=== PATIENT | male | born 1980 | race African-American/Black ===

== ENCOUNTER 2018-09-22 08:01 | Inpatient (IN) | payer MEDICAID ==
[~2018-09-22] VITALS: Ht 180.3 cm; Wt 72.1 kg
[~2018-09-22 08:01] MED LIST: ARIP5TAB8 PO
[2018-09-22] MEDS ORDERED: ESCI20TA PO (08:32)
[2018-09-22] MEDS ORDERED: OLAN7.5T2 PO (08:32)
[2018-09-22 10:29] LABS: BASOPHILS % (AUTO) 0.5 % (0.0-2.0); EOSINOPHILS % (AUTO) 2.4 % (1.0-6.0); HEMATOCRIT 32.9 % (41-53); HEMOGLOBIN 10.3 g/dL (13.5-17.5); LYMPHOCYTES # (AUTO) 1.7 K/uL (1.0-4.8); LYMPHOCYTES % (AUTO) 25.6 % (22.0-44.0); MEAN CORPUSCULAR HEMOGLOBIN 23.3 pg (26.0-34.0); MEAN CORPUSCULAR HGB CONC 31.4 G/dL (31.0-37.0); MEAN CORPUSCULAR VOLUME 74 fL (80-100); MONOCYTES # (AUTO) 1.1 K/uL (0.1-1.0); MONOCYTES % (AUTO) 16.7 % (2.0-9.0); NEUTROPHILS # (AUTO) 3.6 K/uL (1.8-7.7); NEUTROPHILS % (AUTO) 54.8 % (40.0-70.0); PLATELET COUNT (AUTO) 230 K/uL (150-450); RED BLOOD CELL COUNT(AUTO) 4.44 MIL/uL (4.50-5.90); RED CELL DISTRIBUTION WIDTH 15.8 % (11.5-14.5)
[2018-09-22 10:37] LABS: ANION GAP 6 mmol/L (8-16); CALCIUM, TOTAL 8.9 mg/dL (8.8-10.5); CARBON DIOXIDE 29 mmol/L (22-29); CHLORIDE 102 mmol/L (98-107); CREATININE 0.77 mg/dL (0.60-1.30); GLOMERULAR FILTR. RATE CALC > 60 mL/min (>60); GLUCOSE,RANDOM 83 mg/dL (70-110); SODIUM SERUM 137 mmol/L (136-145); UREA NITROGEN, BLOOD 9 mg/dL (7-18)
[2018-09-22 10:44] LABS: ALANINE AMINOTRANSFERASE 23 U/L (12-78); ALBUMIN 3.3 g/dL (3.4-5.0); ALKALINE PHOSPHATASE 95 U/L (46-116); ASPARTATE AMINOTRANSFERASE 17 U/L (15-37); BILIRUBIN,TOTAL 0.4 mg/dL (0.1-1.0)
[2018-09-22] MEDS ORDERED: LOPERAMIDE HCL 2 MG CAPSULE PO PRN (15:15)
[2018-09-22] MEDS ORDERED: TUBERCULIN, PURIFIED PROTEIN DERIVATIVE 5 TU/0.1 ML SYRINGE ID ONE (15:15)
[2018-09-22] MEDS ORDERED: OLANZapine 5 MG RAPDIS TABLET PO PRN (15:15)
[2018-09-22] MEDS ORDERED: ZOLPIDEM TARTRATE 10 MG TABLET PO PRN (15:15)
[2018-09-22] MEDS ORDERED: PROMETHAZINE HCL 25 MG TABLET PO PRN (15:15)
[2018-09-22] MEDS ORDERED: MAG HYDROX/AL HYDROX/SIMETH ES 30 ML SUSPENSION UDCUP PO PRN (15:15)
[2018-09-22] MEDS ORDERED: MAGNESIUM HYDROXIDE SUSPENSION 30 ML UDCUP PO PRN (15:15)
[2018-09-22] MEDS ORDERED: HydrOXYzine PAMOATE 50 MG CAPSULE PO PRN (15:15)
[2018-09-22] MEDS ORDERED: GuaiFENesin/D-METHORPHAN [SUGAR-FREE] 200-20MG/10 ML SYRUP UDCUP PO PRN (15:15)
[2018-09-22] MEDS ORDERED: LORazepam 2 MG TABLET PO PRN (15:15)
[2018-09-22 19:41] VITALS: BP 119/72
[2018-09-22] MEDS: OLANZapine 5 MG RAPDIS TABLET PO SCH (21:16)
[2018-09-22] MEDS: THIAMINE HCL 100 MG TABLET PO SCH (21:16)
[2018-09-23 08:23] VITALS: BP_SYST 109; BP_SYST 140; BP_DIAS 63; BP_DIAS 76
[2018-09-23 08:32] LABS: CHOL/HDL RATIO 1.9 (4.2-7.3); FREE T4 (FREE THYROXINE) 0.98 ng/dL (0.76-1.46); THYROID STIMULATING HORMONE 0.97 uIU/mL (0.36-3.74)
[2018-09-23] MEDS: FLUoxetine HCL 20 MG CAPSULE PO SCH (09:10)
[2018-09-23] MEDS: MULTIVITAMINS WITH MINERALS, THERAPEUTIC TABLET PO SCH (09:10)
[2018-09-23] MEDS: THIAMINE HCL 100 MG TABLET PO SCH ×2 (09:10→16:16)
[2018-09-23] MEDS: FOLIC ACID 1 MG TABLET PO SCH (09:11)
[2018-09-23] MEDS: NALTREXONE HCL 50 MG TABLET PO SCH (09:11)
[2018-09-23 16:16] VITALS: BP 105/62
[2018-09-23] MEDS: OLANZapine 5 MG RAPDIS TABLET PO SCH (20:34)
[2018-09-24 06:23] VITALS: BP 110/68
[2018-09-24 08:23] VITALS: BP 118/67
[2018-09-24] MEDS: NALTREXONE HCL 50 MG TABLET PO SCH (09:07)
[2018-09-24] MEDS: FOLIC ACID 1 MG TABLET PO SCH (09:07)
[2018-09-24] MEDS: THIAMINE HCL 100 MG TABLET PO SCH ×2 (09:07→16:34)
[2018-09-24] MEDS: MULTIVITAMINS WITH MINERALS, THERAPEUTIC TABLET PO SCH (09:07)
[2018-09-24] MEDS: FLUoxetine HCL 20 MG CAPSULE PO SCH (09:07)
[2018-09-24] MEDS: ACETAMINOPHEN 325 MG TABLET PO PRN (09:07)
[2018-09-24 16:24] VITALS: BP 111/78
[2018-09-24] MEDS: OLANZapine 10 MG RAPDIS TABLET PO SCH (20:37)
[2018-09-25 07:03] VITALS: BP 106/72
[2018-09-25] MEDS: FLUoxetine HCL 20 MG CAPSULE PO SCH (08:41)
[2018-09-25] MEDS: MULTIVITAMINS WITH MINERALS, THERAPEUTIC TABLET PO SCH (08:41)
[2018-09-25] MEDS: THIAMINE HCL 100 MG TABLET PO SCH ×2 (08:41→16:45)
[2018-09-25] MEDS: NALTREXONE HCL 50 MG TABLET PO SCH (08:41)
[2018-09-25] MEDS: FOLIC ACID 1 MG TABLET PO SCH (08:41)
[2018-09-25 09:03] VITALS: BP 115/66
[2018-09-25] MEDS: ACETAMINOPHEN 325 MG TABLET PO PRN (09:23)
[2018-09-25 16:24] VITALS: BP 109/60
[2018-09-25] MEDS: OLANZapine 10 MG RAPDIS TABLET PO SCH (20:35)
[2018-09-26 01:42] VITALS: BP 112/66
[2018-09-26 08:10] VITALS: BP 120/71
[2018-09-26] MEDS: NALTREXONE HCL 50 MG TABLET PO SCH (08:51)
[2018-09-26] MEDS: MULTIVITAMINS WITH MINERALS, THERAPEUTIC TABLET PO SCH (08:52)
[2018-09-26] MEDS: THIAMINE HCL 100 MG TABLET PO SCH ×2 (08:52→16:20)
[2018-09-26] MEDS: FLUoxetine HCL 20 MG CAPSULE PO SCH (08:52)
[2018-09-26] MEDS: FOLIC ACID 1 MG TABLET PO SCH (08:52)
[2018-09-26 16:12] VITALS: BP 106/68
[2018-09-26] MEDS: OLANZapine 10 MG RAPDIS TABLET PO SCH (20:49)
[2018-09-27 06:02] VITALS: BP 121/73
[2018-09-27 08:22] VITALS: BP 114/70
[2018-09-27] MEDS: FLUoxetine HCL 20 MG CAPSULE PO SCH (08:51)
[2018-09-27] MEDS: MULTIVITAMINS WITH MINERALS, THERAPEUTIC TABLET PO SCH (08:51)
[2018-09-27] MEDS: THIAMINE HCL 100 MG TABLET PO SCH ×2 (08:51→17:03)
[2018-09-27] MEDS: NALTREXONE HCL 50 MG TABLET PO SCH (08:51)
[2018-09-27] MEDS: FOLIC ACID 1 MG TABLET PO SCH (08:51)
[2018-09-27 16:18] VITALS: BP_SYST 116; BP_SYST 120; BP_DIAS 74
[2018-09-27] MEDS: OLANZapine 10 MG RAPDIS TABLET PO SCH (20:08)
[2018-09-28 05:59] VITALS: BP 119/74
[2018-09-28 08:16] VITALS: BP 112/56
[2018-09-28] MEDS: FOLIC ACID 1 MG TABLET PO SCH (09:04)
[2018-09-28] MEDS: MULTIVITAMINS WITH MINERALS, THERAPEUTIC TABLET PO SCH (09:04)
[2018-09-28] MEDS: NALTREXONE HCL 50 MG TABLET PO SCH (09:04)
[2018-09-28] MEDS: FLUoxetine HCL 20 MG CAPSULE PO SCH (09:04)
[2018-09-28] MEDS: THIAMINE HCL 100 MG TABLET PO SCH ×2 (09:04→16:48)
[2018-09-28 16:12] VITALS: BP 105/67
[2018-09-28] MEDS: OLANZapine 10 MG RAPDIS TABLET PO SCH (20:13)
[2018-09-29 05:58] VITALS: BP 110/68
[2018-09-29 08:18] VITALS: BP 104/62
[2018-09-29] MEDS: THIAMINE HCL 100 MG TABLET PO SCH (10:00)
[2018-09-29] MEDS: FOLIC ACID 1 MG TABLET PO SCH (10:00)
[2018-09-29] MEDS: MULTIVITAMINS WITH MINERALS, THERAPEUTIC TABLET PO SCH (10:00)
[2018-09-29] MEDS: NALTREXONE HCL 50 MG TABLET PO SCH (10:00)
[2018-09-29] MEDS: FLUoxetine HCL 20 MG CAPSULE PO SCH (10:00)
[2018-09-29] MEDS ORDERED: NALT50TA6 PO (10:59)
[2018-09-29] MEDS ORDERED: FLUO-191 PO (10:59)
[2018-09-29] MEDS ORDERED: OLAN10TA6 PO (10:59)
== END 2018-09-29 12:25 | disposition home or self-care (01) | DRG 750 ==
LOC: EMS 08:04 → B3A 17:50 → B2X 19:54
PROVIDERS: ADMIT Psychiatry & Neurology Psychiatry; ATTEND Psychiatry & Neurology Psychiatry
DX: F25.0 Schizoaffective disorder, bipolar type (principal); R45.851 Suicidal ideations; R45.850 Homicidal ideations; J45.909 Unspecified asthma, uncomplicated; F15.90 Other stimulant use, unspecified, uncomplicated; F19.10 Other psychoactive substance abuse, uncomplicated; F17.210 Nicotine dependence, cigarettes, uncomplicated; F60.0 Paranoid personality disorder; G89.29 Other chronic pain; Z65.3 Problems related to other legal circumstances; Z59.0 Homelessness; Z91.14 Patient's other noncompliance with medication regimen; Z91.5 Personal history of self-harm
CPT/HCPCS: 84439; 84443; 86592; G0480

== ENCOUNTER 2018-10-26 19:47 | Inpatient (IN) | payer MEDICAID ==
[~2018-10-26] VITALS: Ht 180.3 cm; Wt 70.8 kg
[~2018-10-26 19:47] MED LIST changes: +ALBU8HFA IH; -ARIP5TAB8 PO; +FLUO-191 PO; +NALT50TA PO; +OLAN10TA22 PO
[2018-10-26 20:34] LABS: BASOPHILS % (AUTO) 0.8 % (0.0-2.0); EOSINOPHILS % (AUTO) 6.4 % (1.0-6.0); HEMATOCRIT 33.5 % (41-53); HEMOGLOBIN 10.7 g/dL (13.5-17.5); LYMPHOCYTES # (AUTO) 1.5 K/uL (1.0-4.8); LYMPHOCYTES % (AUTO) 29.6 % (22.0-44.0); MEAN CORPUSCULAR HEMOGLOBIN 23.6 pg (26.0-34.0); MEAN CORPUSCULAR HGB CONC 31.8 G/dL (31.0-37.0); MEAN CORPUSCULAR VOLUME 74 fL (80-100); MONOCYTES # (AUTO) 0.8 K/uL (0.1-1.0); MONOCYTES % (AUTO) 16.3 % (2.0-9.0); NEUTROPHILS # (AUTO) 2.4 K/uL (1.8-7.7); NEUTROPHILS % (AUTO) 46.9 % (40.0-70.0); PLATELET COUNT (AUTO) 220 K/uL (150-450); RED BLOOD CELL COUNT(AUTO) 4.52 MIL/uL (4.50-5.90); RED CELL DISTRIBUTION WIDTH 15.8 % (11.5-14.5)
[2018-10-26 20:44] LABS: ANION GAP 9 mmol/L (8-16); CARBON DIOXIDE 26 mmol/L (22-29); CHLORIDE 102 mmol/L (98-107); CREATININE 0.95 mg/dL (0.60-1.30); GLOMERULAR FILTR. RATE CALC > 60 mL/min (>60); GLUCOSE,RANDOM 88 mg/dL (70-110); POTASSIUM 3.6 mmol/L (3.5-5.1); SODIUM SERUM 137 mmol/L (136-145); UREA NITROGEN, BLOOD 16 mg/dL (7-18)
[2018-10-26 20:51] LABS: ALANINE AMINOTRANSFERASE 30 U/L (12-78); ALBUMIN 3.6 g/dL (3.4-5.0); ALKALINE PHOSPHATASE 74 U/L (46-116); ASPARTATE AMINOTRANSFERASE 24 U/L (15-37); BILIRUBIN,TOTAL 0.4 mg/dL (0.1-1.0)
[2018-10-26 21:03] LABS: AMPHET/METH SCREEN,URINE POSITIVE (NEGATIVE); BARBITURATE SCREEN, URINE NEGATIVE (NEGATIVE); BENZODIAZEPINES SCREEN,URINE NEGATIVE (NEGATIVE); CANNABINOID SCREEN,URINE POSITIVE (NEGATIVE); COCAINE SCREEN,URINE NEGATIVE (NEGATIVE); METHADONE SCREEN, URINE NEGATIVE (NEGATIVE); OPIATE SCREEN,URINE NEGATIVE (NEGATIVE); PHENCYCLIDINE SCREEN,URINE NEGATIVE (NEGATIVE)
[2018-10-26] MEDS ORDERED: OLANZapine 5 MG TABLET PO SCH (22:45)
[2018-10-26] MEDS ORDERED: LORazepam 2 MG TABLET PO PRN (22:45)
[2018-10-26] MEDS ORDERED: ChlorproMAZINE HCL 100 MG TABLET PO PRN (22:45)
[2018-10-26] MEDS ORDERED: ZOLPIDEM TARTRATE 10 MG TABLET PO PRN (22:45)
[2018-10-27 01:47] VITALS: BP 100/68
[2018-10-27] MEDS ORDERED: ALBUTEROL SULFATE HFA 90 MCG/PUFF 8 GM INHALER IH PRN (06:45)
[2018-10-27] MEDS ORDERED: NICOTINE 14 MG/24 HOUR PATCH TD PRN (06:45)
[2018-10-27] MEDS ORDERED: DOCUSATE SODIUM 100 MG CAPSULE PO PRN (06:45)
[2018-10-27] MEDS ORDERED: GuaiFENesin/D-METHORPHAN [SUGAR-FREE] 200-20MG/10 ML SYRUP UDCUP PO PRN ×2 (06:45→11:15)
[2018-10-27] MEDS ORDERED: MAGNESIUM HYDROXIDE SUSPENSION 30 ML UDCUP PO PRN (06:45)
[2018-10-27] MEDS ORDERED: ONDANSETRON HCL 4 MG TABLET PO PRN (06:45)
[2018-10-27] MEDS ORDERED: CloNIDine HCL 0.1 MG TABLET PO PRN (06:45)
[2018-10-27] MEDS ORDERED: IBUPROFEN 400 MG TABLET PO PRN (06:45)
[2018-10-27] MEDS ORDERED: ACETAMINOPHEN 325 MG TABLET PO PRN (06:45)
[2018-10-27] MEDS ORDERED: PETROLATUM,WHITE 28 GM JELLY TP PRN (06:45)
[2018-10-27] MEDS ORDERED: MAG HYDROX/AL HYDROX/SIMETH ES 30 ML SUSPENSION UDCUP PO PRN (06:45)
[2018-10-27] MEDS ORDERED: LOPERAMIDE HCL 2 MG CAPSULE PO PRN (06:45)
[2018-10-27 07:32] LABS: CHOL/HDL RATIO 1.5 (4.2-7.3)
[2018-10-27 08:06] VITALS: BP 109/69
[2018-10-27] MEDS: FLUoxetine HCL 10 MG CAPSULE PO SCH (08:43)
[2018-10-27] MEDS ORDERED: OLANZapine 5 MG RAPDIS TABLET PO PRN (11:15)
[2018-10-27] MEDS ORDERED: HydrOXYzine PAMOATE 50 MG CAPSULE PO PRN (11:15)
[2018-10-27] MEDS: THIAMINE HCL 100 MG TABLET PO SCH (16:33)
[2018-10-27 17:32] VITALS: BP 110/60
[2018-10-27 20:36] VITALS: BP 115/66
[2018-10-27] MEDS ORDERED: OLANZapine 10 MG TABLET PO SCH (21:00)
[2018-10-28 00:34] VITALS: BP 101/60
[2018-10-28 07:53] LABS: BASOPHILS % (AUTO) 0.9 % (0.0-2.0); EOSINOPHILS % (AUTO) 4.8 % (1.0-6.0); HEMOGLOBIN 11.7 g/dL (13.5-17.5); LYMPHOCYTES # (AUTO) 1.5 K/uL (1.0-4.8); LYMPHOCYTES % (AUTO) 24.2 % (22.0-44.0); MEAN CORPUSCULAR HEMOGLOBIN 23.9 pg (26.0-34.0); MEAN CORPUSCULAR HGB CONC 32.4 G/dL (31.0-37.0); MEAN CORPUSCULAR VOLUME 74 fL (80-100); MONOCYTES # (AUTO) 0.9 K/uL (0.1-1.0); NEUTROPHILS # (AUTO) 3.4 K/uL (1.8-7.7); NEUTROPHILS % (AUTO) 55.1 % (40.0-70.0); PLATELET COUNT (AUTO) 237 K/uL (150-450); RED BLOOD CELL COUNT(AUTO) 4.88 MIL/uL (4.50-5.90); RED CELL DISTRIBUTION WIDTH 15.7 % (11.5-14.5)
[2018-10-28 08:11] VITALS: BP 101/62
[2018-10-28] MEDS: FLUoxetine HCL 10 MG CAPSULE PO SCH (08:23)
[2018-10-28] MEDS: NALTREXONE HCL 50 MG TABLET PO SCH (08:24)
[2018-10-28] MEDS: MULTIVITAMINS WITH MINERALS, THERAPEUTIC TABLET PO SCH (08:24)
[2018-10-28] MEDS: FOLIC ACID 1 MG TABLET PO SCH (08:24)
[2018-10-28] MEDS: THIAMINE HCL 100 MG TABLET PO SCH ×2 (08:24→16:05)
[2018-10-28 08:25] LABS: HEMOGLOBIN A1C 5.7 % (4.5-6.2)
[2018-10-28 08:37] LABS: ALANINE AMINOTRANSFERASE 27 U/L (12-78); ALBUMIN 3.3 g/dL (3.4-5.0); ALKALINE PHOSPHATASE 71 U/L (46-116); ANION GAP 9 mmol/L (8-16); ASPARTATE AMINOTRANSFERASE 17 U/L (15-37); BILIRUBIN,TOTAL 0.2 mg/dL (0.1-1.0); CALCIUM, TOTAL 8.6 mg/dL (8.8-10.5); CARBON DIOXIDE 26 mmol/L (22-29); CHLORIDE 106 mmol/L (98-107); CHOL/HDL RATIO 1.7 (4.2-7.3); CHOLESTEROL 128 mg/dL (131-200); CREATININE 0.67 mg/dL (0.60-1.30); GLOMERULAR FILTR. RATE CALC > 60 mL/min (>60); GLUCOSE,RANDOM 81 mg/dL (70-110); HDL CHOLESTEROL 76 mg/dL (40-60); LDL CHOL (CALC.) 46 mg/dL (0-130); POTASSIUM 4.2 mmol/L (3.5-5.1); SODIUM SERUM 141 mmol/L (136-145); THYROID STIMULATING HORMONE 1.94 uIU/mL (0.36-3.74); TOTAL PROTEIN, SERUM 6.3 g/dL (6.4-8.2); TRIGLYCERIDES 30 mg/dL (15-150); UREA NITROGEN, BLOOD 11 mg/dL (7-18)
[2018-10-28 12:52] VITALS: BP 103/61
[2018-10-28 16:17] VITALS: BP 118/65
[2018-10-28] MEDS ORDERED: OLANZapine 7.5 MG TABLET PO SCH (21:00)
[2018-10-29 06:15] VITALS: BP 117/63
[2018-10-29 08:42] VITALS: BP 105/74
[2018-10-29] MEDS: BACITRACIN 28.4 GM OINTMENT TP SCH ×2 (08:45→16:38)
[2018-10-29] MEDS: THIAMINE HCL 100 MG TABLET PO SCH ×2 (08:45→16:38)
[2018-10-29] MEDS: MULTIVITAMINS WITH MINERALS, THERAPEUTIC TABLET PO SCH (08:45)
[2018-10-29] MEDS: NALTREXONE HCL 50 MG TABLET PO SCH (08:45)
[2018-10-29] MEDS: FOLIC ACID 1 MG TABLET PO SCH (08:45)
[2018-10-29] MEDS: FLUoxetine HCL 10 MG CAPSULE PO SCH (08:45)
[2018-10-29 16:06] VITALS: BP 102/68
[2018-10-29] MEDS: OLANZapine 10 MG TABLET PO SCH (20:25)
[2018-10-30 00:12] VITALS: BP 103/63
[2018-10-30] MEDS: NALTREXONE HCL 50 MG TABLET PO SCH (08:16)
[2018-10-30] MEDS: FLUoxetine HCL 20 MG CAPSULE PO SCH (08:16)
[2018-10-30] MEDS: FOLIC ACID 1 MG TABLET PO SCH (08:16)
[2018-10-30] MEDS: MULTIVITAMINS WITH MINERALS, THERAPEUTIC TABLET PO SCH (08:16)
[2018-10-30] MEDS: THIAMINE HCL 100 MG TABLET PO SCH ×2 (08:16→16:46)
[2018-10-30] MEDS: BACITRACIN 28.4 GM OINTMENT TP SCH ×2 (08:17→16:46)
[2018-10-30 08:19] VITALS: BP 120/79
[2018-10-30 16:26] VITALS: BP 116/65
[2018-10-30] MEDS: OLANZapine 10 MG TABLET PO SCH (20:36)
[2018-10-31 06:09] VITALS: BP 108/63
[2018-10-31] MEDS: FLUoxetine HCL 20 MG CAPSULE PO SCH (08:23)
[2018-10-31] MEDS: THIAMINE HCL 100 MG TABLET PO SCH ×2 (08:24→16:47)
[2018-10-31] MEDS: BACITRACIN 28.4 GM OINTMENT TP SCH ×2 (08:24→16:48)
[2018-10-31] MEDS: NALTREXONE HCL 50 MG TABLET PO SCH (08:24)
[2018-10-31] MEDS: MULTIVITAMINS WITH MINERALS, THERAPEUTIC TABLET PO SCH (08:24)
[2018-10-31] MEDS: FOLIC ACID 1 MG TABLET PO SCH (08:24)
[2018-10-31 08:41] VITALS: BP 119/60
[2018-10-31 16:39] VITALS: BP 108/62
[2018-10-31] MEDS: OLANZapine 10 MG TABLET PO SCH (20:13)
[2018-11-01 00:42] VITALS: BP 100/63
[2018-11-01 08:34] VITALS: BP 106/62
[2018-11-01] MEDS: NALTREXONE HCL 50 MG TABLET PO SCH (08:41)
[2018-11-01] MEDS: FLUoxetine HCL 20 MG CAPSULE PO SCH (08:41)
[2018-11-01] MEDS: BACITRACIN 28.4 GM OINTMENT TP SCH ×2 (08:41→16:24)
[2018-11-01] MEDS: MULTIVITAMINS WITH MINERALS, THERAPEUTIC TABLET PO SCH (08:41)
[2018-11-01] MEDS: FOLIC ACID 1 MG TABLET PO SCH (08:41)
[2018-11-01] MEDS: THIAMINE HCL 100 MG TABLET PO SCH ×2 (08:41→16:19)
[2018-11-01 16:31] VITALS: BP 108/67
[2018-11-01] MEDS: OLANZapine 10 MG TABLET PO SCH (20:25)
[2018-11-02 06:52] VITALS: BP 110/68
[2018-11-02 08:12] VITALS: BP 112/62
[2018-11-02] MEDS: BACITRACIN 28.4 GM OINTMENT TP SCH ×2 (08:20→16:31)
[2018-11-02] MEDS: NALTREXONE HCL 50 MG TABLET PO SCH (08:20)
[2018-11-02] MEDS: FOLIC ACID 1 MG TABLET PO SCH (08:20)
[2018-11-02] MEDS: FLUoxetine HCL 20 MG CAPSULE PO SCH (08:20)
[2018-11-02] MEDS: MULTIVITAMINS WITH MINERALS, THERAPEUTIC TABLET PO SCH (08:20)
[2018-11-02] MEDS: THIAMINE HCL 100 MG TABLET PO SCH ×2 (08:20→16:31)
[2018-11-02 16:09] VITALS: BP 114/65
[2018-11-02] MEDS: OLANZapine 10 MG TABLET PO SCH (20:19)
[2018-11-03 01:48] VITALS: BP 105/63
[2018-11-03 08:27] VITALS: BP 101/61
[2018-11-03] MEDS: FLUoxetine HCL 20 MG CAPSULE PO SCH (09:06)
[2018-11-03] MEDS: BACITRACIN 28.4 GM OINTMENT TP SCH ×2 (09:06→16:30)
[2018-11-03] MEDS: THIAMINE HCL 100 MG TABLET PO SCH ×2 (09:06→16:30)
[2018-11-03] MEDS: FOLIC ACID 1 MG TABLET PO SCH (09:06)
[2018-11-03] MEDS: MULTIVITAMINS WITH MINERALS, THERAPEUTIC TABLET PO SCH (09:06)
[2018-11-03] MEDS: NALTREXONE HCL 50 MG TABLET PO SCH (09:06)
[2018-11-03] MEDS ORDERED: OLAN10TA20 PO (15:36)
[2018-11-03] MEDS ORDERED: NALT50TA PO (15:36)
[2018-11-03] MEDS ORDERED: FLUO-191 PO (15:36)
[2018-11-03] MEDS ORDERED: BACI1POW3 MC (16:39)
== END 2018-11-03 18:05 | disposition home or self-care (01) | DRG 750 ==
LOC: EMS 19:48 → B2S 22:00
PROVIDERS: ADMIT Psychiatry & Neurology Psychiatry; ATTEND Psychiatry & Neurology Psychiatry
DX: F25.9 Schizoaffective disorder, unspecified (principal); R45.851 Suicidal ideations; Z59.0 Homelessness; D64.9 Anemia, unspecified; F17.210 Nicotine dependence, cigarettes, uncomplicated; I10 Essential (primary) hypertension; J45.909 Unspecified asthma, uncomplicated; F15.90 Other stimulant use, unspecified, uncomplicated; F41.9 Anxiety disorder, unspecified; Z91.19 Patient's noncompliance with other medical treatment and regimen; Z65.3 Problems related to other legal circumstances; Z79.899 Other long term (current) drug therapy
CPT/HCPCS: 83036; 84443; 87081; G0480

== ENCOUNTER 2018-11-29 17:25 | Inpatient (IN) | payer SELFPAY ==
[~2018-11-29] VITALS: Ht 180.3 cm; Wt 66.2 kg
[~2018-11-29 17:25] MED LIST changes: -ALBU8HFA IH; +BACI1POW3 MC; +OLAN10TA20 PO; -OLAN10TA22 PO
[2018-11-29 18:43] LABS: BASOPHILS % (AUTO) 0.5 % (0.0-2.0); EOSINOPHILS % (AUTO) 5.5 % (1.0-6.0); HEMATOCRIT 31.4 % (41-53); HEMOGLOBIN 9.8 g/dL (13.5-17.5); LYMPHOCYTES % (AUTO) 33.8 % (22.0-44.0); MEAN CORPUSCULAR HEMOGLOBIN 23.7 pg (26.0-34.0); MEAN CORPUSCULAR HGB CONC 31.3 G/dL (31.0-37.0); MEAN CORPUSCULAR VOLUME 76 fL (80-100); MONOCYTES # (AUTO) 0.7 K/uL (0.1-1.0); MONOCYTES % (AUTO) 12.5 % (2.0-9.0); NEUTROPHILS # (AUTO) 2.8 K/uL (1.8-7.7); NEUTROPHILS % (AUTO) 47.7 % (40.0-70.0); PLATELET COUNT (AUTO) 210 K/uL (150-450); RED BLOOD CELL COUNT(AUTO) 4.14 MIL/uL (4.50-5.90); RED CELL DISTRIBUTION WIDTH 16.2 % (11.5-14.5)
[2018-11-29 18:48] LABS: AMPHET/METH SCREEN,URINE POSITIVE (NEGATIVE); BARBITURATE SCREEN, URINE NEGATIVE (NEGATIVE); BENZODIAZEPINES SCREEN,URINE NEGATIVE (NEGATIVE); CANNABINOID SCREEN,URINE POSITIVE (NEGATIVE); COCAINE SCREEN,URINE NEGATIVE (NEGATIVE); METHADONE SCREEN, URINE NEGATIVE (NEGATIVE); OPIATE SCREEN,URINE NEGATIVE (NEGATIVE)
[2018-11-29 18:51] LABS: PHENCYCLIDINE SCREEN,URINE NEGATIVE (NEGATIVE)
[2018-11-29 18:53] LABS: ANION GAP 8 mmol/L (8-16); CALCIUM, TOTAL 8.4 mg/dL (8.8-10.5); CARBON DIOXIDE 27 mmol/L (22-29); CHLORIDE 106 mmol/L (98-107); CREATININE 0.89 mg/dL (0.60-1.30); GLOMERULAR FILTR. RATE CALC > 60 mL/min (>60); GLUCOSE,RANDOM 105 mg/dL (70-110); POTASSIUM 3.8 mmol/L (3.5-5.1); SODIUM SERUM 141 mmol/L (136-145); UREA NITROGEN, BLOOD 21 mg/dL (7-18)
[2018-11-29 19:07] LABS: ALANINE AMINOTRANSFERASE 33 U/L (12-78); ALKALINE PHOSPHATASE 87 U/L (46-116); ASPARTATE AMINOTRANSFERASE 33 U/L (15-37); BILIRUBIN,TOTAL 0.2 mg/dL (0.1-1.0); TOTAL PROTEIN, SERUM 5.9 g/dL (6.4-8.2)
[2018-11-29] MEDS ORDERED: HALOPERIDOL 5 MG TABLET PO PRN (20:30)
[2018-11-29] MEDS ORDERED: ZOLPIDEM TARTRATE 10 MG TABLET PO PRN (20:30)
[2018-11-29] MEDS ORDERED: LORazepam 1 MG TABLET PO PRN (20:30)
[2018-11-30 00:34] VITALS: BP 120/81
[2018-11-30 07:26] LABS: CHOL/HDL RATIO 1.5 (4.2-7.3); CHOLESTEROL 103 mg/dL (131-200); FREE T4 (FREE THYROXINE) 0.94 ng/dL (0.76-1.46); HDL CHOLESTEROL 70 mg/dL (40-60)
[2018-11-30 07:38] LABS: LDL CHOL (CALC.) 30 mg/dL (0-130); TRIGLYCERIDES < 15 mg/dL (15-150)
[2018-11-30 08:30] VITALS: BP 108/75
[2018-11-30] MEDS ORDERED: CloNIDine HCL 0.1 MG TABLET PO PRN (15:15)
[2018-11-30] MEDS ORDERED: IBUPROFEN 400 MG TABLET PO PRN (15:15)
[2018-11-30] MEDS ORDERED: MAG HYDROX/AL HYDROX/SIMETH ES 30 ML SUSPENSION UDCUP PO PRN (15:15)
[2018-11-30] MEDS ORDERED: MAGNESIUM HYDROXIDE SUSPENSION 30 ML UDCUP PO PRN (15:15)
[2018-11-30] MEDS ORDERED: GuaiFENesin/D-METHORPHAN [SUGAR-FREE] 200-20MG/10 ML SYRUP UDCUP PO PRN (15:15)
[2018-11-30] MEDS ORDERED: ACETAMINOPHEN 325 MG TABLET PO PRN (15:15)
[2018-11-30] MEDS ORDERED: NICOTINE 14 MG/24 HOUR PATCH TD PRN (15:15)
[2018-11-30] MEDS ORDERED: LOPERAMIDE HCL 2 MG CAPSULE PO PRN (15:15)
[2018-11-30] MEDS ORDERED: ALBUTEROL SULFATE HFA 90 MCG/PUFF 8 GM INHALER IH PRN (15:15)
[2018-11-30] MEDS ORDERED: ONDANSETRON HCL 4 MG TABLET PO PRN (15:15)
[2018-11-30] MEDS ORDERED: DOCUSATE SODIUM 100 MG CAPSULE PO PRN (15:15)
[2018-11-30] MEDS ORDERED: PETROLATUM,WHITE 28 GM JELLY TP PRN (15:15)
[2018-11-30 16:55] VITALS: BP 109/67
[2018-11-30] MEDS: FERROUS SULFATE 325 MG EC TABLET PO SCH (17:50)
[2018-11-30] MEDS ORDERED: OLANZapine 10 MG TABLET PO SCH (21:00)
[2018-12-01] MEDS: FERROUS SULFATE 325 MG EC TABLET PO SCH ×2 (06:03→16:48)
[2018-12-01] MEDS: FLUoxetine HCL 20 MG CAPSULE PO SCH (08:56)
[2018-12-01] MEDS ORDERED: HydrOXYzine PAMOATE 50 MG CAPSULE PO PRN (14:45)
[2018-12-01] MEDS ORDERED: GuaiFENesin/D-METHORPHAN [SUGAR-FREE] 200-20MG/10 ML SYRUP UDCUP PO PRN (14:45)
[2018-12-01 16:26] VITALS: BP 110/68
[2018-12-01] MEDS: THIAMINE HCL 100 MG TABLET PO SCH (16:48)
[2018-12-01] MEDS ORDERED: OLANZapine 7.5 MG TABLET PO SCH (21:00)
[2018-12-02 05:59] VITALS: BP 102/70
[2018-12-02] MEDS: FERROUS SULFATE 325 MG EC TABLET PO SCH ×2 (06:15→16:24)
[2018-12-02 08:31] VITALS: BP 113/68
[2018-12-02] MEDS: FOLIC ACID 1 MG TABLET PO SCH (09:21)
[2018-12-02] MEDS: MULTIVITAMINS WITH MINERALS, THERAPEUTIC TABLET PO SCH (09:21)
[2018-12-02] MEDS: FLUoxetine HCL 20 MG CAPSULE PO SCH (09:21)
[2018-12-02] MEDS: NALTREXONE HCL 50 MG TABLET PO SCH (09:22)
[2018-12-02] MEDS: THIAMINE HCL 100 MG TABLET PO SCH ×2 (09:22→16:24)
[2018-12-02 16:51] VITALS: BP 105/61
[2018-12-02] MEDS: OLANZapine 10 MG TABLET PO SCH (20:27)
[2018-12-03 01:24] VITALS: BP 112/70
[2018-12-03] MEDS: FERROUS SULFATE 325 MG EC TABLET PO SCH ×2 (06:29→16:30)
[2018-12-03 08:32] VITALS: BP 126/78
[2018-12-03] MEDS: FLUoxetine HCL 20 MG CAPSULE PO SCH (08:56)
[2018-12-03] MEDS: THIAMINE HCL 100 MG TABLET PO SCH ×2 (08:56→16:30)
[2018-12-03] MEDS: MULTIVITAMINS WITH MINERALS, THERAPEUTIC TABLET PO SCH (08:56)
[2018-12-03] MEDS: NALTREXONE HCL 50 MG TABLET PO SCH (08:56)
[2018-12-03] MEDS: FOLIC ACID 1 MG TABLET PO SCH (08:56)
[2018-12-03 16:41] VITALS: BP 111/74
[2018-12-03] MEDS: OLANZapine 10 MG TABLET PO SCH (20:39)
[2018-12-04 06:36] VITALS: BP 98/61
[2018-12-04] MEDS: FERROUS SULFATE 325 MG EC TABLET PO SCH (06:46)
[2018-12-04] MEDS: FOLIC ACID 1 MG TABLET PO SCH (08:39)
[2018-12-04] MEDS: THIAMINE HCL 100 MG TABLET PO SCH (08:39)
[2018-12-04] MEDS: MULTIVITAMINS WITH MINERALS, THERAPEUTIC TABLET PO SCH (08:39)
[2018-12-04] MEDS: NALTREXONE HCL 50 MG TABLET PO SCH (08:39)
[2018-12-04 08:43] VITALS: BP 115/58
[2018-12-04] MEDS ORDERED: FLUoxetine HCL 20 MG CAPSULE PO SCH (09:00)
== END 2018-12-04 14:30 | disposition home or self-care (01) | DRG 885 ==
LOC: EMS 17:26 → B2S 20:30
PROVIDERS: ADMIT Psychiatry & Neurology Psychiatry; ATTEND Psychiatry & Neurology Psychiatry
DX: F25.0 Schizoaffective disorder, bipolar type (principal); R45.851 Suicidal ideations; E44.0 Moderate protein-calorie malnutrition; D64.9 Anemia, unspecified; F15.10 Other stimulant abuse, uncomplicated; F10.10 Alcohol abuse, uncomplicated; Y90.9 Presence of alcohol in blood, level not specified; Z68.20 Body mass index [BMI] 20.0-20.9, adult; Z91.19 Patient's noncompliance with other medical treatment and regimen
CPT/HCPCS: 84436; 84439; 84443; G0480

== ENCOUNTER 2018-12-25 21:23 | Inpatient (IN) | payer MEDICAID ==
[~2018-12-25] VITALS: Ht 180.3 cm; Wt 61.6 kg
[~2018-12-25 21:23] MED LIST changes: -BACI1POW3 MC
[2018-12-25 21:41] LABS: BASOPHILS % (AUTO) 0.8 % (0.0-2.0); EOSINOPHILS % (AUTO) 3.3 % (1.0-6.0); HEMATOCRIT 37.1 % (41-53); HEMOGLOBIN 11.6 g/dL (13.5-17.5); LYMPHOCYTES # (AUTO) 2.1 K/uL (1.0-4.8); LYMPHOCYTES % (AUTO) 36.5 % (22.0-44.0); MEAN CORPUSCULAR HEMOGLOBIN 23.3 pg (26.0-34.0); MEAN CORPUSCULAR HGB CONC 31.3 G/dL (31.0-37.0); MEAN CORPUSCULAR VOLUME 75 fL (80-100); MONOCYTES # (AUTO) 0.8 K/uL (0.1-1.0); MONOCYTES % (AUTO) 14.4 % (2.0-9.0); NEUTROPHILS # (AUTO) 2.6 K/uL (1.8-7.7); PLATELET COUNT (AUTO) 373 K/uL (150-450); RED BLOOD CELL COUNT(AUTO) 4.98 MIL/uL (4.50-5.90); RED CELL DISTRIBUTION WIDTH 15.5 % (11.5-14.5)
[2018-12-25 21:51] LABS: ANION GAP 5 mmol/L (8-16); CALCIUM, TOTAL 9.5 mg/dL (8.8-10.5); CARBON DIOXIDE 30 mmol/L (22-29); CHLORIDE 100 mmol/L (98-107); CREATININE 0.82 mg/dL (0.60-1.30); GLOMERULAR FILTR. RATE CALC > 60 mL/min (>60); GLUCOSE,RANDOM 102 mg/dL (70-110); POTASSIUM 3.9 mmol/L (3.5-5.1); SODIUM SERUM 135 mmol/L (136-145); UREA NITROGEN, BLOOD 13 mg/dL (7-18)
[2018-12-25 21:57] LABS: ALANINE AMINOTRANSFERASE 18 U/L (12-78); ALKALINE PHOSPHATASE 82 U/L (46-116); ASPARTATE AMINOTRANSFERASE 18 U/L (15-37); BILIRUBIN,TOTAL 0.4 mg/dL (0.1-1.0); TOTAL PROTEIN, SERUM 7.7 g/dL (6.4-8.2)
[2018-12-25] MEDS ORDERED: ChlorproMAZINE HCL 100 MG TABLET PO PRN (23:45)
[2018-12-25] MEDS ORDERED: LORazepam 2 MG TABLET PO PRN (23:45)
[2018-12-25] MEDS ORDERED: OLANZapine 5 MG TABLET PO SCH (23:45)
[2018-12-25] MEDS ORDERED: ZOLPIDEM TARTRATE 10 MG TABLET PO PRN (23:45)
[2018-12-26] MEDS: DiphenhydrAMINE HCL 25 MG CAPSULE PO SCH ×2 (00:03→20:35)
[2018-12-26 00:41] LABS: AMPHET/METH SCREEN,URINE POSITIVE (NEGATIVE); BARBITURATE SCREEN, URINE NEGATIVE (NEGATIVE); BENZODIAZEPINES SCREEN,URINE NEGATIVE (NEGATIVE); CANNABINOID SCREEN,URINE POSITIVE (NEGATIVE); COCAINE SCREEN,URINE NEGATIVE (NEGATIVE); METHADONE SCREEN, URINE NEGATIVE (NEGATIVE); OPIATE SCREEN,URINE NEGATIVE (NEGATIVE)
[2018-12-26 00:44] LABS: PHENCYCLIDINE SCREEN,URINE NEGATIVE (NEGATIVE)
[2018-12-26 02:51] VITALS: BP 109/60
[2018-12-26 06:20] LABS: HEMOGLOBIN A1C 6.1 % (4.5-6.2)
[2018-12-26 06:31] LABS: CHOL/HDL RATIO 1.7 (4.2-7.3); CHOLESTEROL 124 mg/dL (131-200); FREE T4 (FREE THYROXINE) 1.09 ng/dL (0.76-1.46); HDL CHOLESTEROL 73 mg/dL (40-60); LDL CHOL (CALC.) 47 mg/dL (0-130); THYROID STIMULATING HORMONE 1.64 uIU/mL (0.36-3.74); TRIGLYCERIDES 19 mg/dL (15-150)
[2018-12-26] MEDS ORDERED: PETROLATUM,WHITE 28 GM JELLY TP PRN (07:45)
[2018-12-26] MEDS ORDERED: CloNIDine HCL 0.1 MG TABLET PO PRN (07:45)
[2018-12-26] MEDS ORDERED: IBUPROFEN 600 MG TABLET PO PRN (07:45)
[2018-12-26] MEDS ORDERED: MAG HYDROX/AL HYDROX/SIMETH ES 30 ML SUSPENSION UDCUP PO PRN (07:45)
[2018-12-26] MEDS ORDERED: ALBUTEROL SULFATE HFA 90 MCG/PUFF 8 GM INHALER IH PRN (07:45)
[2018-12-26] MEDS ORDERED: DOCUSATE SODIUM 100 MG CAPSULE PO PRN (07:45)
[2018-12-26] MEDS ORDERED: BACITRACIN 28.4 GM OINTMENT TP PRN (07:45)
[2018-12-26] MEDS ORDERED: ACETAMINOPHEN 325 MG TABLET PO PRN (07:45)
[2018-12-26] MEDS ORDERED: MAGNESIUM HYDROXIDE SUSPENSION 30 ML UDCUP PO PRN (07:45)
[2018-12-26] MEDS ORDERED: ONDANSETRON HCL 4 MG TABLET PO PRN (07:45)
[2018-12-26] MEDS ORDERED: BENZOCAINE/MENTHOL LOZENGE MM PRN (07:45)
[2018-12-26] MEDS ORDERED: LOPERAMIDE HCL 2 MG CAPSULE PO PRN (07:45)
[2018-12-26] MEDS ORDERED: OMEPRAZOLE 20 MG CAPSULE PO PRN (07:45)
[2018-12-26] MEDS ORDERED: DIVALPROEX SODIUM 500 MG ER TABLET PO SCH (09:00)
[2018-12-26 09:04] VITALS: BP 97/60
[2018-12-26] MEDS ORDERED: GuaiFENesin/D-METHORPHAN [SUGAR-FREE] 200-20MG/10 ML SYRUP UDCUP PO PRN (10:30)
[2018-12-26] MEDS ORDERED: HydrOXYzine PAMOATE 50 MG CAPSULE PO PRN (10:30)
[2018-12-26] MEDS ORDERED: OLANZapine 5 MG RAPDIS TABLET PO PRN (10:30)
[2018-12-26] MEDS: THIAMINE HCL 100 MG TABLET PO SCH (16:49)
[2018-12-26 16:50] VITALS: BP 107/51
[2018-12-26] MEDS: OLANZapine 7.5 MG TABLET PO SCH (20:34)
[2018-12-27 09:40] VITALS: BP 117/68
[2018-12-27] MEDS: DIVALPROEX SODIUM 500 MG ER TABLET PO SCH (09:49)
[2018-12-27] MEDS: MULTIVITAMINS WITH MINERALS, THERAPEUTIC TABLET PO SCH (09:49)
[2018-12-27] MEDS: FOLIC ACID 1 MG TABLET PO SCH (09:49)
[2018-12-27] MEDS: THIAMINE HCL 100 MG TABLET PO SCH ×2 (09:49→16:53)
[2018-12-27] MEDS: NALTREXONE HCL 50 MG TABLET PO SCH (09:50)
[2018-12-27 17:30] VITALS: BP 121/74
[2018-12-27] MEDS: OLANZapine 7.5 MG TABLET PO SCH (20:52)
[2018-12-27] MEDS: DiphenhydrAMINE HCL 25 MG CAPSULE PO SCH (20:53)
[2018-12-28 08:45] VITALS: BP 110/69
[2018-12-28] MEDS: NALTREXONE HCL 50 MG TABLET PO SCH (09:05)
[2018-12-28] MEDS: THIAMINE HCL 100 MG TABLET PO SCH ×2 (09:08→17:16)
[2018-12-28] MEDS: FOLIC ACID 1 MG TABLET PO SCH (09:08)
[2018-12-28] MEDS: DIVALPROEX SODIUM 500 MG ER TABLET PO SCH (09:08)
[2018-12-28] MEDS: MULTIVITAMINS WITH MINERALS, THERAPEUTIC TABLET PO SCH (09:08)
[2018-12-28 17:02] VITALS: BP 112/75
[2018-12-28] MEDS: DiphenhydrAMINE HCL 25 MG CAPSULE PO SCH (21:20)
[2018-12-28] MEDS: OLANZapine 7.5 MG TABLET PO SCH (21:21)
[2018-12-29] MEDS: NALTREXONE HCL 50 MG TABLET PO SCH (08:59)
[2018-12-29] MEDS: MULTIVITAMINS WITH MINERALS, THERAPEUTIC TABLET PO SCH (08:59)
[2018-12-29] MEDS: FOLIC ACID 1 MG TABLET PO SCH (09:00)
[2018-12-29] MEDS: THIAMINE HCL 100 MG TABLET PO SCH ×2 (09:00→16:41)
[2018-12-29] MEDS: DIVALPROEX SODIUM 500 MG ER TABLET PO SCH (09:00)
[2018-12-29 09:07] VITALS: BP 110/65
[2018-12-29 16:30] VITALS: BP 112/68
[2018-12-29] MEDS: OLANZapine 10 MG TABLET PO SCH (20:21)
[2018-12-29] MEDS: DiphenhydrAMINE HCL 25 MG CAPSULE PO SCH (20:21)
[2018-12-30 08:00] VITALS: BP 130/73
[2018-12-30] MEDS: NALTREXONE HCL 50 MG TABLET PO SCH (08:21)
[2018-12-30] MEDS: THIAMINE HCL 100 MG TABLET PO SCH ×2 (08:23→16:35)
[2018-12-30] MEDS: FOLIC ACID 1 MG TABLET PO SCH (08:23)
[2018-12-30] MEDS: MULTIVITAMINS WITH MINERALS, THERAPEUTIC TABLET PO SCH (08:23)
[2018-12-30] MEDS: DIVALPROEX SODIUM 500 MG ER TABLET PO SCH (08:23)
[2018-12-30] MEDS: OLANZapine 10 MG TABLET PO SCH (20:16)
[2018-12-30] MEDS: DiphenhydrAMINE HCL 25 MG CAPSULE PO SCH (20:16)
[2018-12-31 08:00] VITALS: BP 99/74
[2018-12-31] MEDS: MULTIVITAMINS WITH MINERALS, THERAPEUTIC TABLET PO SCH (09:15)
[2018-12-31] MEDS: THIAMINE HCL 100 MG TABLET PO SCH ×2 (09:15→16:20)
[2018-12-31] MEDS: DIVALPROEX SODIUM 500 MG ER TABLET PO SCH (09:15)
[2018-12-31] MEDS: NALTREXONE HCL 50 MG TABLET PO SCH (09:16)
[2018-12-31] MEDS: FOLIC ACID 1 MG TABLET PO SCH (09:16)
[2018-12-31 16:32] VITALS: BP 112/68
[2018-12-31] MEDS: OLANZapine 10 MG TABLET PO SCH (20:19)
[2018-12-31] MEDS: DiphenhydrAMINE HCL 25 MG CAPSULE PO SCH (20:19)
[2019-01-01 08:00] VITALS: BP 118/71
[2019-01-01] MEDS: NALTREXONE HCL 50 MG TABLET PO SCH (08:03)
[2019-01-01] MEDS: DIVALPROEX SODIUM 500 MG ER TABLET PO SCH (08:05)
[2019-01-01] MEDS: MULTIVITAMINS WITH MINERALS, THERAPEUTIC TABLET PO SCH (08:05)
[2019-01-01] MEDS: FOLIC ACID 1 MG TABLET PO SCH (08:06)
[2019-01-01] MEDS: FLUoxetine HCL 20 MG CAPSULE PO SCH (08:06)
[2019-01-01] MEDS: THIAMINE HCL 100 MG TABLET PO SCH ×2 (08:07→16:28)
[2019-01-01 16:52] VITALS: BP 108/74
[2019-01-01] MEDS: DiphenhydrAMINE HCL 25 MG CAPSULE PO SCH (20:45)
[2019-01-01] MEDS: OLANZapine 5 MG TABLET PO SCH (20:46)
[2019-01-02] MEDS: MULTIVITAMINS WITH MINERALS, THERAPEUTIC TABLET PO SCH (09:40)
[2019-01-02] MEDS: FOLIC ACID 1 MG TABLET PO SCH (09:40)
[2019-01-02] MEDS: FLUoxetine HCL 20 MG CAPSULE PO SCH (09:40)
[2019-01-02] MEDS: THIAMINE HCL 100 MG TABLET PO SCH ×2 (09:40→16:42)
[2019-01-02] MEDS: NALTREXONE HCL 50 MG TABLET PO SCH (09:40)
[2019-01-02] MEDS: DIVALPROEX SODIUM 500 MG ER TABLET PO SCH (09:40)
[2019-01-02 17:26] VITALS: BP 90/65
[2019-01-02 18:45] VITALS: BP 105/70
[2019-01-02] MEDS: OLANZapine 5 MG TABLET PO SCH (20:23)
[2019-01-02] MEDS: DiphenhydrAMINE HCL 25 MG CAPSULE PO SCH (20:24)
[2019-01-03] MEDS: FLUoxetine HCL 20 MG CAPSULE PO SCH (08:37)
[2019-01-03] MEDS: FOLIC ACID 1 MG TABLET PO SCH (08:37)
[2019-01-03] MEDS: THIAMINE HCL 100 MG TABLET PO SCH ×2 (08:37→16:29)
[2019-01-03] MEDS: NALTREXONE HCL 50 MG TABLET PO SCH (08:37)
[2019-01-03] MEDS: DIVALPROEX SODIUM 500 MG ER TABLET PO SCH (08:37)
[2019-01-03] MEDS: MULTIVITAMINS WITH MINERALS, THERAPEUTIC TABLET PO SCH (08:37)
[2019-01-03 09:04] VITALS: BP 151/79
[2019-01-03 18:33] VITALS: BP 130/68
[2019-01-03] MEDS: OLANZapine 5 MG TABLET PO SCH (20:14)
[2019-01-03] MEDS: DiphenhydrAMINE HCL 25 MG CAPSULE PO SCH (20:14)
[2019-01-04 02:42] VITALS: BP 115/61
[2019-01-04] MEDS: FOLIC ACID 1 MG TABLET PO SCH (08:42)
[2019-01-04] MEDS: NALTREXONE HCL 50 MG TABLET PO SCH (08:42)
[2019-01-04] MEDS: DIVALPROEX SODIUM 500 MG ER TABLET PO SCH (08:42)
[2019-01-04] MEDS: THIAMINE HCL 100 MG TABLET PO SCH ×2 (08:42→16:11)
[2019-01-04] MEDS: MULTIVITAMINS WITH MINERALS, THERAPEUTIC TABLET PO SCH (08:42)
[2019-01-04] MEDS: FLUoxetine HCL 20 MG CAPSULE PO SCH (08:42)
[2019-01-04 09:36] VITALS: BP 138/69
[2019-01-04 16:15] VITALS: BP 115/71
[2019-01-04] MEDS: OLANZapine 5 MG TABLET PO SCH (20:35)
[2019-01-04] MEDS: DiphenhydrAMINE HCL 25 MG CAPSULE PO SCH (20:36)
[2019-01-05 08:00] VITALS: BP 111/57
[2019-01-05] MEDS: MULTIVITAMINS WITH MINERALS, THERAPEUTIC TABLET PO SCH (08:47)
[2019-01-05] MEDS: DIVALPROEX SODIUM 500 MG ER TABLET PO SCH (08:47)
[2019-01-05] MEDS: NALTREXONE HCL 50 MG TABLET PO SCH (08:48)
[2019-01-05] MEDS: THIAMINE HCL 100 MG TABLET PO SCH (08:48)
[2019-01-05] MEDS: FOLIC ACID 1 MG TABLET PO SCH (08:48)
[2019-01-05] MEDS: FLUoxetine HCL 20 MG CAPSULE PO SCH (08:48)
[2019-01-05 17:00] VITALS: BP 120/78
[2019-01-05] MEDS: OLANZapine 5 MG TABLET PO SCH (21:51)
[2019-01-05] MEDS: DiphenhydrAMINE HCL 25 MG CAPSULE PO SCH (21:51)
[2019-01-06 08:00] VITALS: BP 105/58
[2019-01-06] MEDS: MULTIVITAMINS WITH MINERALS, THERAPEUTIC TABLET PO SCH (08:49)
[2019-01-06] MEDS: NALTREXONE HCL 50 MG TABLET PO SCH (08:49)
[2019-01-06] MEDS: FLUoxetine HCL 20 MG CAPSULE PO SCH (08:50)
[2019-01-06] MEDS: DIVALPROEX SODIUM 500 MG ER TABLET PO SCH (08:50)
[2019-01-06 18:00] VITALS: BP 124/63
[2019-01-06] MEDS: DiphenhydrAMINE HCL 25 MG CAPSULE PO SCH (20:30)
[2019-01-06] MEDS: OLANZapine 5 MG TABLET PO SCH (20:30)
[2019-01-07 08:11] VITALS: BP 105/70
[2019-01-07] MEDS: NALTREXONE HCL 50 MG TABLET PO SCH (08:28)
[2019-01-07] MEDS: MULTIVITAMINS WITH MINERALS, THERAPEUTIC TABLET PO SCH (08:28)
[2019-01-07] MEDS: DIVALPROEX SODIUM 500 MG ER TABLET PO SCH (08:28)
[2019-01-07] MEDS: FLUoxetine HCL 20 MG CAPSULE PO SCH (08:28)
[2019-01-07] MEDS ORDERED: MULT-1239 PO (11:27)
[2019-01-07] MEDS ORDERED: DIVA-78 PO (11:27)
[2019-01-07] MEDS ORDERED: OLAN10TA3 PO (11:27)
[2019-01-07] MEDS ORDERED: DIPH50 PO (11:27)
[2019-01-07] MEDS ORDERED: FLUO-191 PO (11:27)
[2019-01-07] MEDS ORDERED: NALT50TA6 PO (11:27)
[2019-01-07 16:48] VITALS: BP 113/71
[2019-01-07] MEDS: OLANZapine 5 MG TABLET PO SCH (20:48)
[2019-01-07] MEDS: DiphenhydrAMINE HCL 25 MG CAPSULE PO SCH (20:48)
[2019-01-08 08:00] VITALS: BP 101/65
[2019-01-08] MEDS: DIVALPROEX SODIUM 500 MG ER TABLET PO SCH (08:14)
[2019-01-08] MEDS: FLUoxetine HCL 20 MG CAPSULE PO SCH (08:15)
[2019-01-08] MEDS: NALTREXONE HCL 50 MG TABLET PO SCH (08:15)
[2019-01-08] MEDS: MULTIVITAMINS WITH MINERALS, THERAPEUTIC TABLET PO SCH (08:15)
[2019-01-08] MEDS ORDERED: NALT50TA PO (13:24)
[2019-01-08] MEDS ORDERED: FLUO-191 PO (13:24)
[2019-01-08] MEDS ORDERED: OLAN5TAB27 PO (13:24)
[2019-01-08] MEDS ORDERED: DIVA500T52 PO (13:24)
[2019-01-08 18:42] VITALS: BP 104/62
[2019-01-08] MEDS: OLANZapine 5 MG TABLET PO SCH (20:46)
[2019-01-08] MEDS: DiphenhydrAMINE HCL 25 MG CAPSULE PO SCH (20:46)
[2019-01-09] MEDS: FLUoxetine HCL 20 MG CAPSULE PO SCH (09:22)
[2019-01-09] MEDS: DIVALPROEX SODIUM 500 MG ER TABLET PO SCH (09:22)
[2019-01-09] MEDS: NALTREXONE HCL 50 MG TABLET PO SCH (09:22)
[2019-01-09] MEDS: MULTIVITAMINS WITH MINERALS, THERAPEUTIC TABLET PO SCH (09:22)
[2019-01-09 09:23] VITALS: BP 189/66
[2019-01-09] MEDS ORDERED: MULT-1239 PO (11:55)
== END 2019-01-09 14:25 | disposition home or self-care (01) | DRG 750 ==
LOC: EMS 21:24 → 3EC 12-26 02:00
PROVIDERS: ADMIT Psychiatry & Neurology Psychiatry; ATTEND Psychiatry & Neurology Psychiatry
DX: F25.9 Schizoaffective disorder, unspecified (principal); R45.851 Suicidal ideations; Z59.0 Homelessness; Z91.19 Patient's noncompliance with other medical treatment and regimen; D64.9 Anemia, unspecified; F15.90 Other stimulant use, unspecified, uncomplicated; F17.210 Nicotine dependence, cigarettes, uncomplicated; F41.9 Anxiety disorder, unspecified; G47.00 Insomnia, unspecified; G89.29 Other chronic pain; M54.9 Dorsalgia, unspecified; J45.909 Unspecified asthma, uncomplicated; M25.561 Pain in right knee; F19.10 Other psychoactive substance abuse, uncomplicated; K59.00 Constipation, unspecified; Z65.3 Problems related to other legal circumstances; Z63.9 Problem related to primary support group, unspecified; Z59.9 Problem related to housing and economic circumstances, unspecified; Z56.0 Unemployment, unspecified; Z71.51 Drug abuse counseling and surveillance of drug abuser
CPT/HCPCS: 83036; 84436; 84439; 84443; 87081; G0480

== ENCOUNTER 2019-01-17 00:47 | Inpatient (IN) | payer MEDICAID ==
[~2019-01-17] VITALS: Ht 180.3 cm; Wt 64.7 kg
[~2019-01-17 00:47] MED LIST changes: +DIVA500T52 PO; +MULT-1239 PO; -OLAN10TA20 PO; +OLAN5TAB27 PO
[2019-01-17 01:57] LABS: BASOPHILS % (AUTO) 0.8 % (0.0-2.0); EOSINOPHILS % (AUTO) 5.8 % (1.0-6.0); HEMATOCRIT 37.3 % (41-53); HEMOGLOBIN 11.8 g/dL (13.5-17.5); LYMPHOCYTES # (AUTO) 1.9 K/uL (1.0-4.8); LYMPHOCYTES % (AUTO) 25.9 % (22.0-44.0); MEAN CORPUSCULAR HEMOGLOBIN 23.3 pg (26.0-34.0); MEAN CORPUSCULAR HGB CONC 31.6 G/dL (31.0-37.0); MEAN CORPUSCULAR VOLUME 74 fL (80-100); MONOCYTES # (AUTO) 1.1 K/uL (0.1-1.0); MONOCYTES % (AUTO) 14.1 % (2.0-9.0); NEUTROPHILS % (AUTO) 53.4 % (40.0-70.0); PLATELET COUNT (AUTO) 252 K/uL (150-450); RED BLOOD CELL COUNT(AUTO) 5.06 MIL/uL (4.50-5.90); RED CELL DISTRIBUTION WIDTH 16.1 % (11.5-14.5)
[2019-01-17 02:06] LABS: ANION GAP 9 mmol/L (8-16); CALCIUM, TOTAL 8.9 mg/dL (8.8-10.5); CARBON DIOXIDE 24 mmol/L (22-29); CHLORIDE 102 mmol/L (98-107); CREATININE 0.74 mg/dL (0.60-1.30); GLOMERULAR FILTR. RATE CALC > 60 mL/min (>60); GLUCOSE,RANDOM 95 mg/dL (70-110); POTASSIUM 3.8 mmol/L (3.5-5.1); SODIUM SERUM 135 mmol/L (136-145); UREA NITROGEN, BLOOD 21 mg/dL (7-18)
[2019-01-17 02:13] LABS: ALANINE AMINOTRANSFERASE 34 U/L (12-78); ALBUMIN 3.6 g/dL (3.4-5.0); ALKALINE PHOSPHATASE 94 U/L (46-116); ASPARTATE AMINOTRANSFERASE 24 U/L (15-37); BILIRUBIN,TOTAL 0.2 mg/dL (0.1-1.0); TOTAL PROTEIN, SERUM 6.9 g/dL (6.4-8.2)
[2019-01-17 02:14] LABS: VALPROIC ACID < 3 mcg/mL (50-100)
[2019-01-17 03:02] LABS: AMPHET/METH SCREEN,URINE POSITIVE (NEGATIVE); BARBITURATE SCREEN, URINE NEGATIVE (NEGATIVE); BENZODIAZEPINES SCREEN,URINE NEGATIVE (NEGATIVE); CANNABINOID SCREEN,URINE POSITIVE (NEGATIVE); COCAINE SCREEN,URINE NEGATIVE (NEGATIVE); METHADONE SCREEN, URINE NEGATIVE (NEGATIVE); OPIATE SCREEN,URINE NEGATIVE (NEGATIVE); PHENCYCLIDINE SCREEN,URINE NEGATIVE (NEGATIVE)
[2019-01-17] MEDS ORDERED: ZOLPIDEM TARTRATE 10 MG TABLET PO PRN (09:45)
[2019-01-17] MEDS ORDERED: HALOPERIDOL 5 MG TABLET PO PRN (09:45)
[2019-01-17 21:42] VITALS: BP 111/67
[2019-01-18 05:07] VITALS: BP 118/69
[2019-01-18 08:25] VITALS: BP 106/68
[2019-01-18 08:34] LABS: CHOL/HDL RATIO 2.1 (4.2-7.3)
[2019-01-18] MEDS: LORazepam 2 MG TABLET PO PRN (09:21)
[2019-01-18] MEDS ORDERED: FLUoxetine HCL 20 MG CAPSULE PO ONE (12:00)
[2019-01-18 16:12] VITALS: BP 101/61
[2019-01-18] MEDS: OLANZapine 10 MG TABLET PO SCH (20:18)
[2019-01-19 08:10] VITALS: BP 104/67
[2019-01-19] MEDS: FLUoxetine HCL 20 MG CAPSULE PO SCH (08:13)
[2019-01-19] MEDS: MULTIVITAMINS WITH IRON TABLET PO SCH (08:13)
[2019-01-19 16:06] VITALS: BP 108/70
[2019-01-19] MEDS ORDERED: IBUPROFEN 600 MG TABLET PO PRN (18:45)
[2019-01-19] MEDS: OLANZapine 10 MG TABLET PO SCH (20:17)
[2019-01-20 06:15] VITALS: BP 105/62
[2019-01-20 08:19] VITALS: BP 121/78
[2019-01-20] MEDS: MULTIVITAMINS WITH IRON TABLET PO SCH (08:26)
[2019-01-20] MEDS: FLUoxetine HCL 20 MG CAPSULE PO SCH (08:26)
[2019-01-20 16:05] VITALS: BP 110/66
[2019-01-20] MEDS: LORazepam 2 MG TABLET PO PRN (16:21)
[2019-01-20] MEDS: OLANZapine 10 MG TABLET PO SCH (20:20)
[2019-01-21 02:00] VITALS: BP 120/76
[2019-01-21 08:16] VITALS: BP 110/65
[2019-01-21] MEDS: FLUoxetine HCL 20 MG CAPSULE PO SCH (08:18)
[2019-01-21] MEDS: MULTIVITAMINS WITH IRON TABLET PO SCH (08:18)
[2019-01-21 16:04] VITALS: BP 107/68
[2019-01-21] MEDS: LORazepam 2 MG TABLET PO PRN (16:25)
[2019-01-21] MEDS: OLANZapine 10 MG TABLET PO SCH (20:16)
[2019-01-22 01:54] VITALS: BP 124/73
[2019-01-22 08:05] VITALS: BP 114/65
[2019-01-22] MEDS: FLUoxetine HCL 20 MG CAPSULE PO SCH (08:16)
[2019-01-22] MEDS: MULTIVITAMINS WITH IRON TABLET PO SCH (08:16)
[2019-01-22] MEDS: LORazepam 2 MG TABLET PO PRN (15:52)
[2019-01-22 16:05] VITALS: BP 113/63
[2019-01-22] MEDS: OLANZapine 10 MG TABLET PO SCH (20:18)
[2019-01-23 04:49] VITALS: BP 109/65
[2019-01-23] MEDS: FLUoxetine HCL 20 MG CAPSULE PO SCH (08:11)
[2019-01-23] MEDS: MULTIVITAMINS WITH IRON TABLET PO SCH (08:11)
[2019-01-23 08:28] VITALS: BP 102/67
[2019-01-23] MEDS ORDERED: OLAN10TA3 PO (12:27)
[2019-01-23] MEDS ORDERED: FLUO-191 PO (12:27)
== END 2019-01-23 13:26 | disposition home or self-care (01) | DRG 750 ==
LOC: EMS 00:48 → B2S 14:00 → UNDOADMIN 14:06 → UNDODISIN 01-21 16:35
PROVIDERS: ADMIT Psychiatry & Neurology Psychiatry; ATTEND Psychiatry & Neurology Psychiatry
DX: F25.0 Schizoaffective disorder, bipolar type (principal); R45.851 Suicidal ideations; Z59.0 Homelessness; Z91.14 Patient's other noncompliance with medication regimen; F41.9 Anxiety disorder, unspecified; G47.00 Insomnia, unspecified; J45.909 Unspecified asthma, uncomplicated; K59.00 Constipation, unspecified; Z91.5 Personal history of self-harm; F15.90 Other stimulant use, unspecified, uncomplicated; D64.9 Anemia, unspecified
CPT/HCPCS: 84295; 87081; G0480

== ENCOUNTER 2019-01-31 21:13 | Inpatient (IN) | payer MEDICAID ==
[~2019-01-31] VITALS: Ht 180.3 cm; Wt 65.8 kg
[~2019-01-31 21:13] MED LIST changes: -DIVA500T52 PO; -MULT-1239 PO; -NALT50TA PO; +OLAN10TA3 PO; -OLAN5TAB27 PO
[2019-02-01] MEDS ORDERED: IBUPROFEN 400 MG TABLET PO ONE (01:15)
[2019-02-01 02:03] LABS: BASOPHILS % (AUTO) 1.1 % (0.0-2.0); EOSINOPHILS % (AUTO) 8.9 % (1.0-6.0); HEMATOCRIT 33.5 % (41-53); HEMOGLOBIN 10.8 g/dL (13.5-17.5); LYMPHOCYTES # (AUTO) 2.3 K/uL (1.0-4.8); LYMPHOCYTES % (AUTO) 45.8 % (22.0-44.0); MEAN CORPUSCULAR HEMOGLOBIN 23.6 pg (26.0-34.0); MEAN CORPUSCULAR HGB CONC 32.1 G/dL (31.0-37.0); MEAN CORPUSCULAR VOLUME 73 fL (80-100); MONOCYTES # (AUTO) 0.5 K/uL (0.1-1.0); MONOCYTES % (AUTO) 10.3 % (2.0-9.0); NEUTROPHILS # (AUTO) 1.7 K/uL (1.8-7.7); NEUTROPHILS % (AUTO) 33.9 % (40.0-70.0); PLATELET COUNT (AUTO) 242 K/uL (150-450); RED BLOOD CELL COUNT(AUTO) 4.57 MIL/uL (4.50-5.90); RED CELL DISTRIBUTION WIDTH 16.6 % (11.5-14.5)
[2019-02-01 02:12] LABS: ANION GAP 13 mmol/L (8-16); CALCIUM, TOTAL 8.2 mg/dL (8.8-10.5); CARBON DIOXIDE 23 mmol/L (22-29); CHLORIDE 103 mmol/L (98-107); CREATININE 0.61 mg/dL (0.60-1.30); GLOMERULAR FILTR. RATE CALC > 60 mL/min (>60); GLUCOSE,RANDOM 98 mg/dL (70-110); POTASSIUM 3.1 mmol/L (3.5-5.1); SODIUM SERUM 139 mmol/L (136-145); UREA NITROGEN, BLOOD 12 mg/dL (7-18)
[2019-02-01] MEDS ORDERED: ZOLPIDEM TARTRATE 10 MG TABLET PO PRN (02:15)
[2019-02-01] MEDS ORDERED: HALOPERIDOL 5 MG TABLET PO PRN (02:15)
[2019-02-01 02:18] LABS: ALANINE AMINOTRANSFERASE 17 U/L (12-78); ALBUMIN 3.5 g/dL (3.4-5.0); ALKALINE PHOSPHATASE 55 U/L (46-116); ASPARTATE AMINOTRANSFERASE 19 U/L (15-37); BILIRUBIN,TOTAL 0.4 mg/dL (0.1-1.0); TOTAL PROTEIN, SERUM 6.7 g/dL (6.4-8.2)
[2019-02-01] MEDS ORDERED: POTASSIUM CHLORIDE 10 MEQ ER TABLET PO ONE (05:15)
[2019-02-01 06:10] VITALS: BP 116/70
[2019-02-01 12:14] VITALS: BP 132/79
[2019-02-01] MEDS ORDERED: MAGNESIUM HYDROXIDE SUSPENSION 30 ML UDCUP PO PRN (12:15)
[2019-02-01] MEDS ORDERED: OMEPRAZOLE 20 MG CAPSULE PO PRN (12:15)
[2019-02-01] MEDS ORDERED: ALBUTEROL SULFATE HFA 90 MCG/PUFF 8 GM INHALER IH PRN (12:15)
[2019-02-01] MEDS ORDERED: IBUPROFEN 600 MG TABLET PO PRN (12:15)
[2019-02-01] MEDS ORDERED: MAG HYDROX/AL HYDROX/SIMETH ES 30 ML SUSPENSION UDCUP PO PRN (12:15)
[2019-02-01] MEDS ORDERED: BENZOCAINE/MENTHOL LOZENGE MM PRN (12:15)
[2019-02-01] MEDS ORDERED: BACITRACIN 28.4 GM OINTMENT TP PRN (12:15)
[2019-02-01] MEDS ORDERED: ACETAMINOPHEN 325 MG TABLET PO PRN (12:15)
[2019-02-01] MEDS ORDERED: DOCUSATE SODIUM 100 MG CAPSULE PO PRN (12:15)
[2019-02-01] MEDS ORDERED: LOPERAMIDE HCL 2 MG CAPSULE PO PRN (12:15)
[2019-02-01] MEDS ORDERED: CloNIDine HCL 0.1 MG TABLET PO PRN (12:15)
[2019-02-01] MEDS ORDERED: PETROLATUM,WHITE 28 GM JELLY TP PRN (12:15)
[2019-02-01] MEDS ORDERED: ONDANSETRON HCL 4 MG TABLET PO PRN (12:15)
[2019-02-01 20:22] VITALS: BP 108/60
[2019-02-01] MEDS: OLANZapine 10 MG TABLET PO SCH (20:55)
[2019-02-01] MEDS ORDERED: OLANZapine 5 MG TABLET PO SCH (21:00)
[2019-02-02 05:58] LABS: CHOL/HDL RATIO 1.7 (4.2-7.3); POTASSIUM 3.8 mmol/L (3.5-5.1)
[2019-02-02 09:17] VITALS: BP 117/57
[2019-02-02] MEDS: FLUoxetine HCL 20 MG CAPSULE PO SCH (10:55)
[2019-02-02 17:00] VITALS: BP 121/71
[2019-02-02] MEDS: OLANZapine 10 MG TABLET PO SCH (20:28)
[2019-02-03 08:58] VITALS: BP 109/79
[2019-02-03] MEDS: FLUoxetine HCL 20 MG CAPSULE PO SCH (10:54)
[2019-02-03 17:10] VITALS: BP 123/63
[2019-02-03] MEDS: OLANZapine 10 MG TABLET PO SCH (20:48)
[2019-02-04 08:51] VITALS: BP 93/71
[2019-02-04] MEDS: FLUoxetine HCL 20 MG CAPSULE PO SCH (10:00)
[2019-02-04 16:01] VITALS: BP 107/70
[2019-02-04] MEDS: LORazepam 2 MG TABLET PO PRN (19:11)
[2019-02-04] MEDS: OLANZapine 10 MG TABLET PO SCH (20:30)
[2019-02-05 08:12] VITALS: BP 118/72
[2019-02-05] MEDS: FLUoxetine HCL 20 MG CAPSULE PO SCH (08:18)
[2019-02-05 16:55] VITALS: BP 103/65
[2019-02-05] MEDS: OLANZapine 10 MG TABLET PO SCH (20:11)
[2019-02-06] MEDS: FLUoxetine HCL 20 MG CAPSULE PO SCH (07:56)
[2019-02-06 09:17] VITALS: BP 101/55
[2019-02-06 17:09] VITALS: BP 116/65
[2019-02-06] MEDS: OLANZapine 10 MG TABLET PO SCH (20:17)
[2019-02-07] MEDS: FLUoxetine HCL 20 MG CAPSULE PO SCH (08:16)
[2019-02-07 08:49] VITALS: BP 110/70
[2019-02-07 16:14] VITALS: BP 128/87
[2019-02-07] MEDS: LORazepam 2 MG TABLET PO PRN (16:19)
[2019-02-07] MEDS: OLANZapine 10 MG TABLET PO SCH (20:16)
[2019-02-08 09:16] VITALS: BP 113/69
[2019-02-08] MEDS: FLUoxetine HCL 20 MG CAPSULE PO SCH (09:30)
[2019-02-08 17:36] VITALS: BP 99/59
[2019-02-08] MEDS: OLANZapine 10 MG TABLET PO SCH (20:52)
[2019-02-09] MEDS: FLUoxetine HCL 20 MG CAPSULE PO SCH (09:21)
[2019-02-09 11:29] VITALS: BP 126/71
== END 2019-02-09 14:30 | disposition home or self-care (01) | DRG 750 ==
LOC: EMS 21:16 → 3EI 02-01 11:33
PROVIDERS: ADMIT Psychiatry & Neurology Psychiatry; ATTEND Psychiatry & Neurology Psychiatry
DX: F25.0 Schizoaffective disorder, bipolar type (principal); R45.851 Suicidal ideations; Z59.0 Homelessness; D64.9 Anemia, unspecified; E87.6 Hypokalemia; F41.9 Anxiety disorder, unspecified; F19.10 Other psychoactive substance abuse, uncomplicated; G47.00 Insomnia, unspecified; J45.909 Unspecified asthma, uncomplicated; K59.00 Constipation, unspecified; M25.561 Pain in right knee; Z72.0 Tobacco use; Z91.14 Patient's other noncompliance with medication regimen; Z91.5 Personal history of self-harm; Z79.899 Other long term (current) drug therapy; Z71.51 Drug abuse counseling and surveillance of drug abuser; Z72.89 Other problems related to lifestyle
CPT/HCPCS: 84132; 84295; 87081; G0480

== ENCOUNTER 2019-02-15 11:39 | Inpatient (IN) | payer MEDICAID ==
[~2019-02-15] VITALS: Ht 180.3 cm; Wt 63.3 kg
[2019-02-15 13:15] LABS: BASOPHILS % (AUTO) 0.7 % (0.0-2.0); EOSINOPHILS % (AUTO) 3.7 % (1.0-6.0); HEMATOCRIT 35.8 % (41-53); HEMOGLOBIN 11.3 g/dL (13.5-17.5); LYMPHOCYTES # (AUTO) 1.6 K/uL (1.0-4.8); LYMPHOCYTES % (AUTO) 31.9 % (22.0-44.0); MEAN CORPUSCULAR HEMOGLOBIN 23.4 pg (26.0-34.0); MEAN CORPUSCULAR HGB CONC 31.7 G/dL (31.0-37.0); MEAN CORPUSCULAR VOLUME 74 fL (80-100); MONOCYTES # (AUTO) 0.6 K/uL (0.1-1.0); NEUTROPHILS # (AUTO) 2.5 K/uL (1.8-7.7); NEUTROPHILS % (AUTO) 50.7 % (40.0-70.0); PLATELET COUNT (AUTO) 249 K/uL (150-450); RED BLOOD CELL COUNT(AUTO) 4.84 MIL/uL (4.50-5.90)
[2019-02-15] MEDS ORDERED: IBUPROFEN 400 MG TABLET PO ONE (13:15)
[2019-02-15] MEDS ORDERED: OLANZapine 5 MG TABLET PO ONE (13:15)
[2019-02-15 13:25] LABS: ANION GAP 8 mmol/L (8-16); CALCIUM, TOTAL 9.2 mg/dL (8.8-10.5); CARBON DIOXIDE 28 mmol/L (22-29); CHLORIDE 104 mmol/L (98-107); GLOMERULAR FILTR. RATE CALC > 60 mL/min (>60); GLUCOSE,RANDOM 67 mg/dL (70-110); SODIUM SERUM 140 mmol/L (136-145); UREA NITROGEN, BLOOD 20 mg/dL (7-18)
[2019-02-15 13:31] LABS: ALANINE AMINOTRANSFERASE 31 U/L (12-78); ALBUMIN 3.7 g/dL (3.4-5.0); ALKALINE PHOSPHATASE 55 U/L (46-116); ASPARTATE AMINOTRANSFERASE 27 U/L (15-37); BILIRUBIN,TOTAL 0.6 mg/dL (0.1-1.0); TOTAL PROTEIN, SERUM 7.3 g/dL (6.4-8.2)
[2019-02-15] MEDS ORDERED: ZOLPIDEM TARTRATE 10 MG TABLET PO PRN (14:15)
[2019-02-15] MEDS ORDERED: HALOPERIDOL 5 MG TABLET PO PRN (14:15)
[2019-02-15] MEDS ORDERED: LORazepam 2 MG TABLET PO PRN (14:15)
[2019-02-15 16:48] VITALS: BP 100/60
[2019-02-15] MEDS: OLANZapine 10 MG TABLET PO SCH (20:34)
[2019-02-16 01:43] VITALS: BP 108/69
[2019-02-16] MEDS ORDERED: INFLUENZA VIRUS VACCINE QVS 2019-20 (3YR+)/PF 60 MCG/0.5 ML SYRINGE IM ONE (04:30)
[2019-02-16 08:10] LABS: BASOPHILS % (AUTO) 0.5 % (0.0-2.0); EOSINOPHILS % (AUTO) 2.8 % (1.0-6.0); HEMATOCRIT 36.3 % (41-53); HEMOGLOBIN 11.7 g/dL (13.5-17.5); LYMPHOCYTES # (AUTO) 1.5 K/uL (1.0-4.8); MEAN CORPUSCULAR HEMOGLOBIN 23.7 pg (26.0-34.0); MEAN CORPUSCULAR HGB CONC 32.2 G/dL (31.0-37.0); MEAN CORPUSCULAR VOLUME 74 fL (80-100); MONOCYTES # (AUTO) 0.6 K/uL (0.1-1.0); MONOCYTES % (AUTO) 7.4 % (2.0-9.0); NEUTROPHILS # (AUTO) 5.4 K/uL (1.8-7.7); NEUTROPHILS % (AUTO) 69.3 % (40.0-70.0); PLATELET COUNT (AUTO) 264 K/uL (150-450); RED BLOOD CELL COUNT(AUTO) 4.93 MIL/uL (4.50-5.90)
[2019-02-16 08:21] VITALS: BP 111/66
[2019-02-16 08:24] LABS: HEMOGLOBIN A1C 5.5 % (4.5-6.2)
[2019-02-16 08:34] LABS: ALANINE AMINOTRANSFERASE 28 U/L (12-78); ALBUMIN 3.4 g/dL (3.4-5.0); ALKALINE PHOSPHATASE 56 U/L (46-116); ANION GAP 8 mmol/L (8-16); ASPARTATE AMINOTRANSFERASE 20 U/L (15-37); BILIRUBIN,TOTAL 0.4 mg/dL (0.1-1.0); CALCIUM, TOTAL 8.8 mg/dL (8.8-10.5); CARBON DIOXIDE 28 mmol/L (22-29); CHLORIDE 106 mmol/L (98-107); CHOL/HDL RATIO 1.6 (4.2-7.3); CHOLESTEROL 141 mg/dL (131-200); CREATININE 0.66 mg/dL (0.60-1.30); FREE T4 (FREE THYROXINE) 0.99 ng/dL (0.76-1.46); GLOMERULAR FILTR. RATE CALC > 60 mL/min (>60); GLUCOSE,RANDOM 75 mg/dL (70-110); HDL CHOLESTEROL 87 mg/dL (40-60); LDL CHOL (CALC.) 47 mg/dL (0-130); POTASSIUM 3.9 mmol/L (3.5-5.1); SODIUM SERUM 142 mmol/L (136-145); THYROID STIMULATING HORMONE 1.23 uIU/mL (0.36-3.74); TOTAL PROTEIN, SERUM 6.4 g/dL (6.4-8.2); TRIGLYCERIDES 34 mg/dL (15-150)
[2019-02-16 08:38] LABS: UREA NITROGEN, BLOOD 19 mg/dL (7-18)
[2019-02-16] MEDS: FLUoxetine HCL 20 MG CAPSULE PO SCH (08:42)
[2019-02-16 16:13] VITALS: BP 109/60
[2019-02-16] MEDS: OLANZapine 10 MG TABLET PO SCH (20:51)
[2019-02-17 03:25] VITALS: BP 118/76
[2019-02-17 08:15] VITALS: BP 110/66
[2019-02-17] MEDS: FLUoxetine HCL 20 MG CAPSULE PO SCH (08:29)
[2019-02-17 16:25] VITALS: BP 108/64
[2019-02-17] MEDS: OLANZapine 10 MG TABLET PO SCH (20:20)
[2019-02-18 00:51] VITALS: BP 120/60
[2019-02-18] MEDS: FLUoxetine HCL 20 MG CAPSULE PO SCH (08:18)
[2019-02-18 08:22] VITALS: BP 118/64
[2019-02-18 16:00] VITALS: BP 111/63
[2019-02-18] MEDS: OLANZapine 10 MG TABLET PO SCH (20:48)
[2019-02-19 01:04] VITALS: BP 112/72
[2019-02-19 08:20] VITALS: BP 116/59
[2019-02-19] MEDS: FLUoxetine HCL 20 MG CAPSULE PO SCH (08:48)
[2019-02-19 16:10] VITALS: BP 100/60
[2019-02-19] MEDS: OLANZapine 10 MG TABLET PO SCH (20:27)
[2019-02-20 01:11] VITALS: BP 107/62
[2019-02-20 08:12] VITALS: BP 124/59
[2019-02-20] MEDS: FLUoxetine HCL 20 MG CAPSULE PO SCH (08:31)
== END 2019-02-20 13:26 | disposition home or self-care (01) | DRG 750 ==
LOC: EMS 11:40 → B2S 14:57
PROVIDERS: ADMIT Psychiatry & Neurology Psychiatry; ATTEND Psychiatry & Neurology Psychiatry
DX: F25.0 Schizoaffective disorder, bipolar type (principal); R45.851 Suicidal ideations; Z59.0 Homelessness; D64.9 Anemia, unspecified; E87.6 Hypokalemia; F17.200 Nicotine dependence, unspecified, uncomplicated; F41.9 Anxiety disorder, unspecified; G47.00 Insomnia, unspecified; J45.909 Unspecified asthma, uncomplicated; F19.10 Other psychoactive substance abuse, uncomplicated; M79.641 Pain in right hand; K59.00 Constipation, unspecified; Z56.0 Unemployment, unspecified; Z91.5 Personal history of self-harm; Z72.89 Other problems related to lifestyle
CPT/HCPCS: 83036; 84439; 84443; 87081; G0480

== ENCOUNTER 2019-02-28 07:24 | Emergency (ER) | payer MEDICAID ==
[~2019-02-28] VITALS: Ht 177.8 cm; Wt 79.5 kg
[2019-02-28 07:35] VITALS: BP 124/76
[2019-02-28] MEDS ORDERED: ACETAMINOPHEN 500 MG TABLET PO ONE (07:45)
== END 2019-02-28 09:06 | disposition home or self-care (01) ==
LOC: EMS 07:26
DX: F20.9 Schizophrenia, unspecified (principal); M25.561 Pain in right knee; F19.90 Other psychoactive substance use, unspecified, uncomplicated

== ENCOUNTER 2019-04-16 13:09 | Inpatient (IN) | payer MEDICAID, OTHER ==
[~2019-04-16] VITALS: Ht 180.3 cm; Wt 63.2 kg
[2019-04-16] MEDS ORDERED: HALOPERIDOL 5 MG TABLET PO ONE (14:00)
[2019-04-16 14:15] LABS: BASOPHILS % (AUTO) 0.7 % (0.0-2.0); EOSINOPHILS % (AUTO) 10.1 % (1.0-6.0); HEMATOCRIT 32.2 % (41-53); HEMOGLOBIN 10.3 g/dL (13.5-17.5); LYMPHOCYTES # (AUTO) 1.2 K/uL (1.0-4.8); MEAN CORPUSCULAR HGB CONC 31.9 G/dL (31.0-37.0); MEAN CORPUSCULAR VOLUME 75 fL (80-100); MONOCYTES # (AUTO) 0.6 K/uL (0.1-1.0); MONOCYTES % (AUTO) 13.5 % (2.0-9.0); NEUTROPHILS # (AUTO) 2.1 K/uL (1.8-7.7); NEUTROPHILS % (AUTO) 48.7 % (40.0-70.0); PLATELET COUNT (AUTO) 230 K/uL (150-450); RED BLOOD CELL COUNT(AUTO) 4.28 MIL/uL (4.50-5.90); RED CELL DISTRIBUTION WIDTH 15.1 % (11.5-14.5)
[2019-04-16 14:30] LABS: ANION GAP 8 mmol/L (8-16); CALCIUM, TOTAL 8.4 mg/dL (8.8-10.5); CARBON DIOXIDE 28 mmol/L (22-29); CHLORIDE 106 mmol/L (98-107); CREATININE 0.61 mg/dL (0.60-1.30); GLOMERULAR FILTR. RATE CALC > 60 mL/min (>60); GLUCOSE,RANDOM 139 mg/dL (70-110); POTASSIUM 3.1 mmol/L (3.5-5.1); SODIUM SERUM 142 mmol/L (136-145); UREA NITROGEN, BLOOD 15 mg/dL (7-18)
[2019-04-16 14:42] LABS: ALANINE AMINOTRANSFERASE 25 U/L (12-78); ALBUMIN 3.2 g/dL (3.4-5.0); ALKALINE PHOSPHATASE 59 U/L (46-116); ASPARTATE AMINOTRANSFERASE 18 U/L (15-37); BILIRUBIN,TOTAL 0.3 mg/dL (0.1-1.0); TOTAL PROTEIN, SERUM 6.3 g/dL (6.4-8.2)
[2019-04-16] MEDS ORDERED: ZOLPIDEM TARTRATE 10 MG TABLET PO PRN (15:45)
[2019-04-16] MEDS ORDERED: HALOPERIDOL 5 MG TABLET PO PRN (15:45)
[2019-04-16] MEDS ORDERED: LORazepam 2 MG TABLET PO PRN (15:45)
[2019-04-16 21:28] VITALS: BP 116/70
[2019-04-17 00:19] VITALS: BP 100/61
[2019-04-17] MEDS ORDERED: ONDANSETRON HCL 4 MG TABLET PO PRN (06:30)
[2019-04-17] MEDS ORDERED: MAG HYDROX/AL HYDROX/SIMETH ES 30 ML SUSPENSION UDCUP PO PRN (06:30)
[2019-04-17] MEDS ORDERED: IBUPROFEN 400 MG TABLET PO PRN (06:30)
[2019-04-17] MEDS ORDERED: CloNIDine HCL 0.1 MG TABLET PO PRN (06:30)
[2019-04-17] MEDS ORDERED: NICOTINE 14 MG/24 HOUR PATCH TD PRN (06:30)
[2019-04-17] MEDS ORDERED: GuaiFENesin/D-METHORPHAN [SUGAR-FREE] 200-20MG/10 ML SYRUP UDCUP PO PRN (06:30)
[2019-04-17] MEDS ORDERED: ALBUTEROL SULFATE HFA 90 MCG/PUFF 8 GM INHALER IH PRN (06:30)
[2019-04-17] MEDS ORDERED: MAGNESIUM HYDROXIDE SUSPENSION 30 ML UDCUP PO PRN (06:30)
[2019-04-17] MEDS ORDERED: LOPERAMIDE HCL 2 MG CAPSULE PO PRN (06:30)
[2019-04-17] MEDS ORDERED: PETROLATUM,WHITE 28 GM JELLY TP PRN (06:30)
[2019-04-17] MEDS ORDERED: DOCUSATE SODIUM 100 MG CAPSULE PO PRN (06:30)
[2019-04-17] MEDS ORDERED: ACETAMINOPHEN 325 MG TABLET PO PRN (06:30)
[2019-04-17] MEDS ORDERED: POTASSIUM CHLORIDE 20 MEQ ER TABLET PO ONE (08:00)
[2019-04-17 08:09] LABS: CHOL/HDL RATIO 1.4 (4.2-7.3)
[2019-04-17 08:17] VITALS: BP 110/59
[2019-04-17] MEDS: FLUoxetine HCL 20 MG CAPSULE PO SCH (13:53)
[2019-04-17 16:07] VITALS: BP 109/63
[2019-04-17] MEDS: OLANZapine 10 MG TABLET PO SCH (20:07)
[2019-04-18 01:32] VITALS: BP 122/79
[2019-04-18] MEDS: FLUoxetine HCL 20 MG CAPSULE PO SCH (08:20)
[2019-04-18 08:42] VITALS: BP 119/64
[2019-04-18 16:50] VITALS: BP 102/64
[2019-04-18] MEDS: OLANZapine 10 MG TABLET PO SCH (20:18)
[2019-04-19 07:26] LABS: HEMOGLOBIN A1C 5.2 % (4.5-6.2)
[2019-04-19 07:43] LABS: ANION GAP 8 mmol/L (8-16); CALCIUM, TOTAL 8.7 mg/dL (8.8-10.5); CARBON DIOXIDE 28 mmol/L (22-29); CHLORIDE 104 mmol/L (98-107); CHOLESTEROL 141 mg/dL (131-200); CREATININE 0.69 mg/dL (0.60-1.30); GLOMERULAR FILTR. RATE CALC > 60 mL/min (>60); GLUCOSE,RANDOM 94 mg/dL (70-110); HDL CHOLESTEROL 71 mg/dL (40-60); LDL CHOL (CALC.) 64 mg/dL (0-130); POTASSIUM 3.8 mmol/L (3.5-5.1); SODIUM SERUM 140 mmol/L (136-145); THYROID STIMULATING HORMONE 1.25 uIU/mL (0.36-3.74); TRIGLYCERIDES 31 mg/dL (15-150); UREA NITROGEN, BLOOD 7 mg/dL (7-18)
[2019-04-19] MEDS: FLUoxetine HCL 20 MG CAPSULE PO SCH (08:19)
[2019-04-19 08:39] VITALS: BP 117/60
[2019-04-19] MEDS: MULTIVITAMINS WITH IRON TABLET PO SCH (10:13)
[2019-04-19 16:25] VITALS: BP 103/63
[2019-04-19] MEDS: OLANZapine 10 MG TABLET PO SCH (20:23)
[2019-04-20 00:25] VITALS: BP 105/62
[2019-04-20] MEDS: FLUoxetine HCL 20 MG CAPSULE PO SCH (08:15)
[2019-04-20] MEDS: MULTIVITAMINS WITH IRON TABLET PO SCH (08:16)
[2019-04-20 08:55] VITALS: BP 105/63
[2019-04-20 16:14] VITALS: BP 100/60
[2019-04-20] MEDS: OLANZapine 10 MG TABLET PO SCH (20:58)
[2019-04-21 08:14] VITALS: BP 123/63
[2019-04-21] MEDS: MULTIVITAMINS WITH IRON TABLET PO SCH (08:15)
[2019-04-21] MEDS: FLUoxetine HCL 20 MG CAPSULE PO SCH (08:15)
[2019-04-21 13:27] VITALS: BP 110/75
[2019-04-21 17:43] VITALS: BP 118/69
[2019-04-21] MEDS: OLANZapine 10 MG TABLET PO SCH (20:15)
[2019-04-22 00:22] VITALS: BP 104/60
[2019-04-22 08:31] VITALS: BP 114/64
[2019-04-22] MEDS: FLUoxetine HCL 20 MG CAPSULE PO SCH (08:35)
[2019-04-22] MEDS: MULTIVITAMINS WITH IRON TABLET PO SCH (08:35)
[2019-04-22 16:08] VITALS: BP 134/79
[2019-04-22] MEDS: OLANZapine 10 MG TABLET PO SCH (20:38)
[2019-04-23 04:48] VITALS: BP 129/65
[2019-04-23] MEDS: MULTIVITAMINS WITH IRON TABLET PO SCH (08:17)
[2019-04-23] MEDS: FLUoxetine HCL 20 MG CAPSULE PO SCH (08:17)
[2019-04-23 08:45] VITALS: BP 135/80
[2019-04-23] MEDS ORDERED: OLAN10TA3 PO (09:15)
[2019-04-23] MEDS ORDERED: FLUO-191 PO (09:15)
[2019-04-23 16:00] VITALS: BP 107/78
== END 2019-04-23 20:50 | disposition home or self-care (01) | DRG 750 ==
LOC: EMS 13:10 → B2S 17:49
PROVIDERS: ADMIT Psychiatry & Neurology Child & Adolescent Psychiatry; ATTEND Psychiatry & Neurology Child & Adolescent Psychiatry
DX: F25.1 Schizoaffective disorder, depressive type (principal); R45.851 Suicidal ideations; Z59.0 Homelessness; D64.9 Anemia, unspecified; D72.819 Decreased white blood cell count, unspecified; E87.6 Hypokalemia; F15.90 Other stimulant use, unspecified, uncomplicated; I10 Essential (primary) hypertension; J45.909 Unspecified asthma, uncomplicated; Z91.5 Personal history of self-harm
CPT/HCPCS: 83036; 84443; G0480

== ENCOUNTER 2019-06-01 18:39 | Emergency (ER) | payer MEDICAID, OTHER ==
[~2019-06-01] VITALS: Ht 180.3 cm; Wt 60.9 kg
[2019-06-01 18:41] VITALS: BP 121/61
[2019-06-01 22:09] LABS: EOSINOPHILS % (AUTO) 6.8 % (1.0-6.0); HEMATOCRIT 34.4 % (41-53); HEMOGLOBIN 11.2 g/dL (13.5-17.5); LYMPHOCYTES # (AUTO) 1.9 K/uL (1.0-4.8); MEAN CORPUSCULAR HEMOGLOBIN 24.2 pg (26.0-34.0); MEAN CORPUSCULAR HGB CONC 32.6 G/dL (31.0-37.0); MEAN CORPUSCULAR VOLUME 74 fL (80-100); MONOCYTES % (AUTO) 13.4 % (2.0-9.0); NEUTROPHILS # (AUTO) 3.8 K/uL (1.8-7.7); NEUTROPHILS % (AUTO) 52.8 % (40.0-70.0); PLATELET COUNT (AUTO) 298 K/uL (150-450); RED BLOOD CELL COUNT(AUTO) 4.66 MIL/uL (4.50-5.90); RED CELL DISTRIBUTION WIDTH 15.1 % (11.5-14.5)
[2019-06-01 22:15] LABS: ANION GAP 8 mmol/L (8-16); CALCIUM, TOTAL 8.8 mg/dL (8.8-10.5); CARBON DIOXIDE 27 mmol/L (22-29); CHLORIDE 104 mmol/L (98-107); CREATININE 0.69 mg/dL (0.60-1.30); GLOMERULAR FILTR. RATE CALC > 60 mL/min (>60); GLUCOSE,RANDOM 98 mg/dL (70-110); POTASSIUM 3.9 mmol/L (3.5-5.1); SODIUM SERUM 139 mmol/L (136-145); UREA NITROGEN, BLOOD 22 mg/dL (7-18)
[2019-06-01 22:23] LABS: ALANINE AMINOTRANSFERASE 28 U/L (12-78); ALBUMIN 3.4 g/dL (3.4-5.0); ALKALINE PHOSPHATASE 103 U/L (46-116); ASPARTATE AMINOTRANSFERASE 15 U/L (15-37); BILIRUBIN,TOTAL 0.2 mg/dL (0.1-1.0); TOTAL PROTEIN, SERUM 6.9 g/dL (6.4-8.2)
[2019-06-01] MEDS ORDERED: IBUPROFEN 600 MG TABLET PO ONE (22:30)
[2019-06-01] MEDS ORDERED: ACETAMINOPHEN 500 MG TABLET PO ONE (22:30)
[2019-06-01 22:48] LABS: AMPHET/METH SCREEN,URINE POSITIVE (NEGATIVE); BARBITURATE SCREEN, URINE NEGATIVE (NEGATIVE); BENZODIAZEPINES SCREEN,URINE NEGATIVE (NEGATIVE); CANNABINOID SCREEN,URINE POSITIVE (NEGATIVE); COCAINE SCREEN,URINE NEGATIVE (NEGATIVE); METHADONE SCREEN, URINE NEGATIVE (NEGATIVE); OPIATE SCREEN,URINE NEGATIVE (NEGATIVE); PHENCYCLIDINE SCREEN,URINE NEGATIVE (NEGATIVE)
== END 2019-06-02 01:00 | disposition home or self-care (01) ==
LOC: EMS 18:43
DX: F20.0 Paranoid schizophrenia (principal); F15.10 Other stimulant abuse, uncomplicated; K08.89 Other specified disorders of teeth and supporting structures; Z98.890 Other specified postprocedural states; Z79.899 Other long term (current) drug therapy
CPT/HCPCS: 36415; 80053; 80307; 85025; 99284; G0480

== ENCOUNTER 2019-06-11 01:14 | Inpatient (IN) | payer MEDICAID, OTHER ==
[~2019-06-11] VITALS: Ht 177.8 cm; Wt 63.1 kg
[2019-06-11 02:04] LABS: AMPHET/METH SCREEN,URINE POSITIVE (NEGATIVE); BARBITURATE SCREEN, URINE NEGATIVE (NEGATIVE); BENZODIAZEPINES SCREEN,URINE NEGATIVE (NEGATIVE); CANNABINOID SCREEN,URINE POSITIVE (NEGATIVE); COCAINE SCREEN,URINE NEGATIVE (NEGATIVE); METHADONE SCREEN, URINE NEGATIVE (NEGATIVE); OPIATE SCREEN,URINE NEGATIVE (NEGATIVE); PHENCYCLIDINE SCREEN,URINE NEGATIVE (NEGATIVE)
[2019-06-11 03:07] LABS: ANION GAP 8 mmol/L (8-16); CALCIUM, TOTAL 8.8 mg/dL (8.8-10.5); CARBON DIOXIDE 27 mmol/L (22-29); CHLORIDE 102 mmol/L (98-107); CREATININE 0.69 mg/dL (0.60-1.30); GLOMERULAR FILTR. RATE CALC > 60 mL/min (>60); GLUCOSE,RANDOM 100 mg/dL (70-110); POTASSIUM 3.8 mmol/L (3.5-5.1); SODIUM SERUM 137 mmol/L (136-145); UREA NITROGEN, BLOOD 26 mg/dL (7-18)
[2019-06-11 03:14] LABS: ALANINE AMINOTRANSFERASE 31 U/L (12-78); ALBUMIN 3.5 g/dL (3.4-5.0); ALKALINE PHOSPHATASE 107 U/L (46-116); ASPARTATE AMINOTRANSFERASE 25 U/L (15-37); BASOPHILS % (AUTO) 0.5 % (0.0-2.0); BILIRUBIN,TOTAL 0.3 mg/dL (0.1-1.0); EOSINOPHILS % (AUTO) 4.6 % (1.0-6.0); HEMATOCRIT 35.8 % (41-53); HEMOGLOBIN 11.6 g/dL (13.5-17.5); LYMPHOCYTES # (AUTO) 1.8 K/uL (1.0-4.8); LYMPHOCYTES % (AUTO) 23.5 % (22.0-44.0); MEAN CORPUSCULAR HGB CONC 32.4 G/dL (31.0-37.0); MEAN CORPUSCULAR VOLUME 74 fL (80-100); MONOCYTES % (AUTO) 12.5 % (2.0-9.0); NEUTROPHILS # (AUTO) 4.5 K/uL (1.8-7.7); NEUTROPHILS % (AUTO) 58.9 % (40.0-70.0); PLATELET COUNT (AUTO) 264 K/uL (150-450); RED BLOOD CELL COUNT(AUTO) 4.84 MIL/uL (4.50-5.90); RED CELL DISTRIBUTION WIDTH 15.3 % (11.5-14.5); TOTAL PROTEIN, SERUM 6.8 g/dL (6.4-8.2)
[2019-06-11] MEDS ORDERED: ZOLPIDEM TARTRATE 10 MG TABLET PO PRN (03:30)
[2019-06-11] MEDS ORDERED: HALOPERIDOL 5 MG TABLET PO PRN (03:30)
[2019-06-11 05:11] VITALS: BP 113/68
[2019-06-11] MEDS ORDERED: PNEUMOCOCCAL VACCINE POLYVALENT 0.5 ML VIAL [PPSV23] IM ONE (06:00)
[2019-06-11 08:10] VITALS: BP 112/72
[2019-06-11] MEDS ORDERED: CloNIDine HCL 0.1 MG TABLET PO PRN (14:45)
[2019-06-11] MEDS ORDERED: PETROLATUM,WHITE 28 GM JELLY TP PRN (14:45)
[2019-06-11] MEDS ORDERED: DOCUSATE SODIUM 100 MG CAPSULE PO PRN (14:45)
[2019-06-11] MEDS ORDERED: LOPERAMIDE HCL 2 MG CAPSULE PO PRN (14:45)
[2019-06-11] MEDS ORDERED: IBUPROFEN 400 MG TABLET PO PRN (14:45)
[2019-06-11] MEDS ORDERED: MAGNESIUM HYDROXIDE SUSPENSION 30 ML UDCUP PO PRN (14:45)
[2019-06-11] MEDS ORDERED: GuaiFENesin/D-METHORPHAN [SUGAR-FREE] 200-20MG/10 ML SYRUP UDCUP PO PRN (14:45)
[2019-06-11] MEDS ORDERED: ALBUTEROL SULFATE HFA 90 MCG/PUFF 8 GM INHALER IH PRN (14:45)
[2019-06-11] MEDS ORDERED: ACETAMINOPHEN 325 MG TABLET PO PRN (14:45)
[2019-06-11] MEDS ORDERED: ONDANSETRON HCL 4 MG TABLET PO PRN (14:45)
[2019-06-11] MEDS ORDERED: NICOTINE 14 MG/24 HOUR PATCH TD PRN (14:45)
[2019-06-11] MEDS ORDERED: MAG HYDROX/AL HYDROX/SIMETH ES 30 ML SUSPENSION UDCUP PO PRN (14:45)
[2019-06-11 20:23] VITALS: BP 114/63
[2019-06-11] MEDS: OLANZapine 7.5 MG TABLET PO SCH (22:02)
[2019-06-12 06:26] VITALS: BP 103/78
[2019-06-12 08:07] LABS: CHOL/HDL RATIO 1.9 (4.2-7.3)
[2019-06-12] MEDS: FLUoxetine HCL 20 MG CAPSULE PO SCH (09:34)
[2019-06-12 10:11] VITALS: BP 111/67
[2019-06-12] MEDS: OLANZapine 7.5 MG TABLET PO SCH (21:07)
[2019-06-12 22:11] VITALS: BP 112/70
[2019-06-13] MEDS: FLUoxetine HCL 20 MG CAPSULE PO SCH (10:54)
[2019-06-13 11:52] VITALS: BP 130/58
[2019-06-13 18:34] VITALS: BP 123/80
[2019-06-13] MEDS: OLANZapine 7.5 MG TABLET PO SCH (20:40)
[2019-06-14 08:00] VITALS: BP 118/75
[2019-06-14] MEDS: FLUoxetine HCL 20 MG CAPSULE PO SCH (10:25)
[2019-06-14 17:00] VITALS: BP 109/77
[2019-06-14] MEDS: LORazepam 2 MG TABLET PO PRN (19:09)
[2019-06-14] MEDS: OLANZapine 7.5 MG TABLET PO SCH (20:00)
[2019-06-15 08:29] VITALS: BP 106/58
[2019-06-15] MEDS: FLUoxetine HCL 20 MG CAPSULE PO SCH (08:52)
[2019-06-15] MEDS: LORazepam 2 MG TABLET PO PRN (16:28)
[2019-06-15 19:16] VITALS: BP 117/68
[2019-06-15] MEDS: OLANZapine 7.5 MG TABLET PO SCH (20:57)
[2019-06-16] MEDS: FLUoxetine HCL 20 MG CAPSULE PO SCH (08:47)
[2019-06-16] MEDS ORDERED: OLAN7.5T2 PO (09:00)
[2019-06-16] MEDS ORDERED: FLUO-191 PO (09:00)
[2019-06-16 11:56] VITALS: BP 116/74
== END 2019-06-16 11:25 | disposition home or self-care (01) | DRG 885 ==
LOC: EMS 01:16 → 3EI 04:34
PROVIDERS: ADMIT Psychiatry & Neurology Psychiatry; ATTEND Psychiatry & Neurology Psychiatry
PROC: 3E0234Z Introduction of Serum, Toxoid and Vaccine into Muscle, Percutaneous Approach (ICD-10-PCS; principal; 2019-06-13)
DX: F20.0 Paranoid schizophrenia (principal); R45.851 Suicidal ideations; F10.10 Alcohol abuse, uncomplicated; I10 Essential (primary) hypertension; D64.9 Anemia, unspecified; J45.909 Unspecified asthma, uncomplicated; F19.10 Other psychoactive substance abuse, uncomplicated; Z91.14 Patient's other noncompliance with medication regimen; Z23 Encounter for immunization
CPT/HCPCS: 87081; G0480

== ENCOUNTER 2021-02-12 04:25 | Emergency (ER) | payer MEDICAID, OTHER ==
[~2021-02-12] VITALS: Ht 180.3 cm; Wt 75.0 kg
[~2021-02-12 04:25] MED LIST changes: -OLAN10TA3 PO; +OLAN7.5T22 PO
[2021-02-12 05:53] VITALS: BP 116/73
== END 2021-02-12 07:45 | disposition home or self-care (01) ==
LOC: EMS 04:28
DX: G89.29 Other chronic pain (principal); M79.674 Pain in right toe(s); F22 Delusional disorders; F20.9 Schizophrenia, unspecified
CPT/HCPCS: 99283